=== PATIENT | male | born 1950 | race Caucasian/White ===

== ENCOUNTER 2017-06-23 17:22 | Inpatient (IN) | payer MEDICARE, OTHER ==
[~2017-06-23] VITALS: Ht 175.3 cm; Wt 83.5 kg
[2017-06-23] MEDS ORDERED: CYAN10005 PO (17:47)
[2017-06-23] MEDS ORDERED: ERGO500027 PO (17:52)
[2017-06-23] MEDS ORDERED: CITA10TA4 PO (17:52)
[2017-06-23] MEDS ORDERED: LEVO175T5 PO (17:52)
[2017-06-23] MEDS ORDERED: CLON0.5T3 PO (17:52)
[2017-06-23] MEDS ORDERED: ATOR20TA58 PO (17:52)
[2017-06-23] MEDS ORDERED: TAMS0.4C2 PO (17:52)
[2017-06-23] MEDS ORDERED: CARB200T PO (17:52)
[2017-06-23] MEDS ORDERED: DONE10TA7 PO (17:52)
[2017-06-23 18:07] LABS: BASO # 0.1 x10^3/uL (0.0-0.2); BASO % 1 % (0-3); EOS # 0.4 x10^3/uL (0.0-0.7); EOS % 4 % (0-3); HEMATOCRIT 39.1 % (39.0-53.0); HEMOGLOBIN 13.2 g/dL (13.0-17.5); LYMPH # 2.1 x10^3/uL (1.0-4.8); LYMPH % 22 % (24-48); MEAN CORPUSCULAR HEMOGLOBIN 30 pg (25-35); MEAN CORPUSCULAR HGB CONC 34 g/dL (31-37); MEAN CORPUSCULAR VOLUME 89 fL (79-100); MONO # 1.1 x10^3/uL (0.0-1.1); MONO % 11 % (0-9); NEUT # 5.7 x10^3uL (1.8-7.7); NEUT % 62 % (31-73); PLATELET COUNT 259 x10^3/uL (140-400); RED BLOOD COUNT 4.38 x10^6/uL (4.30-5.70); RED CELL DISTRIBUTION WIDTH 13.7 % (11.5-14.5); WHITE BLOOD COUNT 9.3 x10^3/uL (4.0-11.0)
--- NOTE | 2017-06-23 18:13 | PHYS DOC ---
Past History Past Medical History: Bipolar, Dementia Alcohol Use: Occasionally Drug Use: None Adult General Chief Complaint Chief Complaint: PSYCH EVALUATION HPI HPI Patient is a 66-year-old male with a reported history of dementia who arrives by EMS from his shelter for clearance for admission to the [facility]. The patient does not know why he is here. The patient is alert, cooperative, and does answer questions, but his history is felt to be unreliable. The patient says he has not eaten today. He denies any pain. He denies chest pain or shortness of air. He denies any complaints at this time. Review of Systems Review of Systems Review of systems is felt to be unreliable due to the patient's history of dementia and his not knowing why he is here. Allergies Allergies Allergies Coded Allergies Type Severity Reaction Last Updated Verified No Known Drug Allergies 06/23/17 No Physical Exam Physical Exam Constitutional: Well developed, well nourished, no acute distress, non-toxic appearance. Alert, vital signs stable, mentating normally. HENT: Normocephalic, atraumatic, bilateral external ears normal, nose normal. [] Eyes: conjunctiva normal, no discharge. [] Neck: Normal range of motion, no stridor. [] Cardiovascular:Heart rate regular rhythm, no murmur [] Lungs & Thorax: Bilateral breath sounds clear to auscultation [] Abdomen: Bowel sounds normal, soft, no tenderness, no masses, no pulsatile masses. [] Skin: Warm, dry, no erythema, no rash. [] Extremities: No tenderness, no cyanosis, no clubbing, ROM intact, no edema. [] Neurologic: Alert, normal motor function, no focal deficits noted. [] Current Patient Data Vital Signs Vital Signs Date Time Temp Pulse Resp B/P (MAP) Pulse Ox O2 Delivery O2 Flow Rate FiO2 06/23/17 17:39 97.6 67 18 93 Room Air Lab Results Laboratory Tests Test 06/23/17 17:35 White Blood Count 9.3 x10^3/uL (4.0-11.0) Red Blood Count 4.38 x10^6/uL (4.30-5.70) Hemoglobin 13.2 g/dL (13.0-17.5) Hematocrit 39.1 % (39.0-53.0) Mean Corpuscular Volume 89 fL (79-100) Mean Corpuscular Hemoglobin 30 pg (25-35) Mean Corpuscular Hemoglobin Concent 34 g/dL (31-37) Red Cell Distribution Width 13.7 % (11.5-14.5) Platelet Count 259 x10^3/uL (140-400) Neutrophils (%) (Auto) 62 % (31-73) Lymphocytes (%) (Auto) 22 % (24-48) L Monocytes (%) (Auto) 11 % (0-9) H Eosinophils (%) (Auto) 4 % (0-3) H Basophils (%) (Auto) 1 % (0-3) Neutrophils # (Auto) 5.7 x10^3uL (1.8-7.7) Lymphocytes # (Auto) 2.1 x10^3/uL (1.0-4.8) Monocytes # (Auto) 1.1 x10^3/uL (0.0-1.1) Eosinophils # (Auto) 0.4 x10^3/uL (0.0-0.7) Basophils # (Auto) 0.1 x10^3/uL (0.0-0.2) EKG EKG 12-lead EKG read by me. Sinus rhythm. Heart rate 66. Right bundle branch block. There are no acute ST or T wave changes indicative of ischemia or infarction. No rhythm disturbances. No STEMI. 1756[] Radiology/Procedures Radiology/Procedures [] Course & Med Decision Making Course & Med Decision Making Pertinent Labs and Imaging studies reviewed. (See chart for details) Screening labs, urinalysis, EKG were done for [facility] admission. I ordered a carbamazepine level since the patient has that on his NOV. The patient rested comfortably and was cooperative in the emergency department. STAT labs were reviewed by me and are unremarkable. EKG is normal. The patient is medically cleared for admission to the [facility] unit. [] Dragon Disclaimer Dragon Disclaimer This chart was dictated in whole or in part using Voice Recognition software in a busy, high-work load, and often noisy Emergency Department environment. It may contain unintended and wholly unrecognized errors or omissions. Departure Departure: Impression: Primary Impression: Behavioral problem Additional Impression: Dementia Disposition: ADMITTED INPATIENT Condition: STABLE Referrals: TRENTON LOPEZ MD (PCP) Problem Qualifiers SHERRI GROVES MD Jun 23, 2017 18:13
[2017-06-23 18:16] LABS: ALBUMIN 3.6 g/dL (3.4-5.0); ALBUMIN/GLOBULIN RATIO 0.8 (1.0-1.7); CALCIUM 8.6 mg/dL (8.5-10.1); CREATININE 0.8 mg/dL (0.7-1.3); GFR 96.4; MAGNESIUM 2.4 mg/dL (1.8-2.4); POTASSIUM 4.1 mmol/L (3.5-5.1); TOTAL BILIRUBIN 0.2 mg/dL (0.2-1.0); TOTAL PROTEIN 7.9 g/dL (6.4-8.2)
--- NOTE | 2017-06-23 18:31 | EKG ---
[address] [address] Test Date: 2017-06-23 Test Time: 17:56:27 Pat Name: [facility] Department: Room: Gender: M Compliance Attorney: JABARI : 1950 Requested By: SHERRI GROVES Order Number: [id number] Reading MD: Jason Sawyer Measurements Intervals [place] Rate: 66 P: 49 NM: 196 QRS: -11 QRSD: 102 T: 33 QT: 404 QTc: 425 Interpretive Statements SINUS RHYTHM RBBB Electronically Signed On 07-08-2017 9:10:28 CDT by Jason Sawyer
[2017-06-23 19:52] LABS: BACTERIA,URINE 0 /HPF (0-FEW); BILIRUBIN,URINE NEG (NEG); CLARITY,URINE CLEAR; COLOR,URINE YELLOW; GLUCOSE,URINE NEG (NEG); NITRITE,URINE NEG (NEG); RBC,URINE 0 /HPF (0-2); SQUAMOUS EPITHELIAL CELL,UR OCC /LPF; UROBILINOGEN,URINE 0.2 mg/dL (0.2 mg/dL); WBC,URINE 0 /HPF (0-4)
[2017-06-23 22:23] VITALS: BP 158/73
[2017-06-23] MEDS ORDERED: MAGN400O7 PO (22:29)
[2017-06-23] MEDS ORDERED: CYAN500T PO (22:29)
[2017-06-23] MEDS ORDERED: ONDA4TAB10 PO (22:29)
[2017-06-23] MEDS ORDERED: ACET325T9 PO (22:29)
[2017-06-23] MEDS ORDERED: CARB400T3 PO (22:29)
[2017-06-23] MEDS ORDERED: clonazePAM 0.5 MG TABLET PO PRN (22:30)
[2017-06-23] MEDS ORDERED: MAG HYDROX/AL HYDROX/SIMETH 30 ML ORAL.SUSP PO PRN (22:30)
[2017-06-23] MEDS ORDERED: MAGNESIUM HYDROXIDE 2,400 MG/30 ML ORAL.SUSP. PO PRN (22:30)
[2017-06-23] MEDS ORDERED: ACETAMINOPHEN 325 MG TABLET PO PRN (22:30)
[2017-06-23] MEDS ORDERED: METHYL SALICYLATE/MENTHOL TOPICAL OINTMENT 29GM TUBE. TP PRN (22:30)
[2017-06-23] MEDS ORDERED: ONDANSETRON ODT 4 MG TAB.RAPDIS PO PRN (22:45)
[2017-06-24] MEDS: LEVOTHYROXINE 175 MCG TABLET PO SCH (05:35)
[2017-06-24] MEDS ORDERED: ACETAMINOPHEN 325 MG TABLET PO PRN (06:45)
[2017-06-24] MEDS ORDERED: MAGNESIUM HYDROXIDE 2,400 MG/30 ML ORAL.SUSP. PO PRN (06:45)
[2017-06-24 07:26] VITALS: BP 142/79
[2017-06-24] MEDS: CITALOPRAM 10 MG TABLET. PO SCH (07:34)
[2017-06-24] MEDS: carBAMazepine XR 200 MG TAB.ER.12H PO SCH ×2 (07:35→19:18)
[2017-06-24] MEDS: CYANOCOBALAMIN (VITAMIN B-12) 1,000 MCG TABLET. PO SCH (07:35)
[2017-06-24 11:57] LABS: THYROID STIM HORMONE (TSH) 4.587 uIU/mL (0.358-3.740)
[2017-06-24 12:00] LABS: CARBAM 8.8 mcg/mL (4.0-12.0)
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
[2017-06-24 16:20] VITALS: BP 144/80
[2017-06-24] MEDS: MIRTAZAPINE 7.5 MG TABLET. PO SCH (19:43)
[2017-06-24] MEDS: ATORVASTATIN CALCIUM 20 MG TABLET PO SCH (19:43)
[2017-06-24] MEDS: TAMSULOSIN 0.4 MG CAP.ER.24H. PO SCH (19:43)
[2017-06-24] MEDS: DONEPEZIL HCL 10 MG TABLET PO SCH (19:44)
[2017-06-24 20:08] LABS: HEMOGLOBIN A1C 5.8 % (4.8-5.6)
--- NOTE | 2017-06-24 21:34 | PDOC ---
Exam Gunnar Demential Exam: Gunnar Note: Please also refer to the separate dictated note~for this date of service dictated separately.~Patient seen individually. Discussed the patient with Nursing staff reviewed the chart.~Reviewed interim history and current functioning. Reviewed vital signs,~Labs/ Radiology~and current medications noted below. Continue current treatment with the changes noted in the dictated addendum note Assessment: Vital Signs: Vital Signs Date Time Temp Pulse Resp B/P (MAP) Pulse Ox O2 Delivery O2 Flow Rate FiO2 06/24/17 16:20 98.6 77 16 144/80 (101) 92 Room Air I&O Intake and Output 06/25/17 07:00 Intake Total 1320 ml Balance 1320 ml Intake Oral 1320 ml Current Medications: Meds: Current Medications Acetaminophen (Tylenol) 650 mg PRN Q6HRS PRN PO PAIN / TEMP; Start 06/23/17 at 22:30 Multi-Ingredient Ointment (Analgesic [place]) 1 brittney PRN QID PRN TP MUSCLE PAIN; Start 06/23/17 at 22:30 Al Hydroxide/Mg Hydroxide (Mylanta Plus Xs) 15 ml PRN AFTMEALHC PRN PO DYSPEPSIA; Start 06/23/17 at 22:30 Magnesium Hydroxide (Milk Of Magnesia) 2,400 mg PRN QHS PRN PO CONSTIPATION; Start 06/23/17 at 22:30 Citalopram Hydrobromide (CeleXA) 10 mg DAILY PO Last administered on 07:34; Start 06/24/17 at 09:00 Clonazepam (KlonoPIN) 0.5 mg PRN BID PRN PO ANXIETY / AGITATION; Start at 22:30 Donepezil HCl (Aricept) 10 mg QHS PO Last administered on 06/24/17 19:44; Start 06/24/17 at 21:00 Atorvastatin Calcium (Lipitor) 20 mg QHS PO Last administered on 06/24/17 19: 43; Start 06/24/17 at 21:00 Levothyroxine Sodium (Synthroid) 175 mcg DAILY07 PO Last administered on 05:35; Start 06/24/17 at 07:00 Ondansetron HCl (Zofran Odt) 4 mg PRN Q8HRS PRN PO NAUSEA/VOMITING; Start at 22:45 Tamsulosin HCl (Flomax) 0.4 mg QHS PO Last administered on 06/24/17 19:43; Start 06/24/17 at 21:00 Carbamazepine (TEGretol XR) 400 mg BID PO Last administered on 06/24/17 19:18 ; Start 06/24/17 at 09:00 Cyanocobalamin (Vitamin B-12) 1,000 mcg DAILY PO Last administered on 07:35; Start 06/24/17 at 09:00 Vitamin D (Vitamin D3) 50,000 unit WEEKLY PO ; Start 07/02/17 at 09:00 Acetaminophen (Tylenol) 650 mg PRN Q6HRS PRN PO PAIN / TEMP; Start 06/24/17 at 06:45; Status UNV Magnesium Hydroxide (Milk Of Magnesia) 2,400 mg PRN DAILY PRN PO CONSTIPATION; Start 06/24/17 at 06:45; Status UNV Mirtazapine (Remeron) 7.5 mg QHS PO Last administered on 06/24/17 19:43; Start 06/24/17 at 21:00 Active Scripts Active Reported Zofran Odt (Ondansetron) 4 Mg Tab.rapdis 4 Mg PO PRN Q8HRS PRN Milk Of Magnesia (Magnesium Hydroxide) 400 Mg/5 Ml Oral.susp 2,400 Mg PO PRN DAILY PRN Carbamazepine Er (Carbamazepine) 400 Mg Tab.er.12h 400 Mg PO BID Tylenol (Acetaminophen) 325 Mg Tablet 650 Mg PO PRN Q6HRS PRN Vitamin B-12 (Cyanocobalamin (Vitamin B-12)) 500 Mcg Tablet 1,000 Mcg PO DAILY Citalopram Hbr (Citalopram Hydrobromide) 10 Mg Tablet 10 Mg PO DAILY Levothyroxine Sodium 175 Mcg Tablet 175 Mcg PO DAILY07 Donepezil Hcl 10 Mg Tablet 10 Mg PO QHS Atorvastatin Calcium 20 Mg Tablet 20 Mg PO QHS Tamsulosin Hcl 0.4 Mg Cap.er.24h 0.4 Mg PO QHS Clonazepam 0.5 Mg Tablet 0.5 Mg PO PRN BID PRN Vitamin D2 (Ergocalciferol (Vitamin D2)) 50,000 Unit Capsule 50,000 Units PO QTU Diagnosis: Problems: (1) Dementia (2) Behavioral problem (3) Anxiety disorder (4) Bipolar affective, mixed, severe (5) Dementia, vascular, with depression (6) 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
[2017-06-24 23:08] LABS: T3 TOTAL 91 ng/dL (71-180); THYROXINE 6.1 ug/dL (4.5-12.0)
[2017-06-25 06:22] VITALS: BP 144/78
[2017-06-25] MEDS: LEVOTHYROXINE 175 MCG TABLET PO SCH (08:07)
[2017-06-25] MEDS: CYANOCOBALAMIN (VITAMIN B-12) 1,000 MCG TABLET. PO SCH (08:07)
[2017-06-25] MEDS: carBAMazepine XR 200 MG TAB.ER.12H PO SCH ×2 (08:07→20:23)
[2017-06-25] MEDS: CITALOPRAM 10 MG TABLET. PO SCH (08:07)
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
[2017-06-25 16:10] VITALS: BP 129/80
[2017-06-25] MEDS: ATORVASTATIN CALCIUM 20 MG TABLET PO SCH (20:23)
[2017-06-25] MEDS: TAMSULOSIN 0.4 MG CAP.ER.24H. PO SCH (20:23)
[2017-06-25] MEDS: DONEPEZIL HCL 10 MG TABLET PO SCH (20:23)
[2017-06-25] MEDS: MIRTAZAPINE 7.5 MG TABLET. PO SCH (20:23)
--- NOTE | 2017-06-25 20:30 | PDOC ---
Exam Gunnar Demential Exam: Gunnar Note: Please also refer to the separate dictated note~for this date of service dictated separately.~Patient seen individually. Discussed the patient with Nursing staff reviewed the chart.~Reviewed interim history and current functioning. Reviewed vital signs,~Labs/ Radiology~and current medications noted below. Continue current treatment with the changes noted in the dictated addendum note Assessment: Vital Signs: Vital Signs Date Time Temp Pulse Resp B/P (MAP) Pulse Ox O2 Delivery O2 Flow Rate FiO2 06/25/17 16:10 98.8 80 16 129/80 (96) 92 06/24/17 16:20 Room Air I&O Intake and Output 06/26/17 07:00 Intake Total 600 ml Balance 600 ml Intake Oral 600 ml # Bowel Movements 1 Current Medications: Meds: Current Medications Acetaminophen (Tylenol) 650 mg PRN Q6HRS PRN PO PAIN / TEMP; Start 06/23/17 at 22:30 Multi-Ingredient Ointment (Analgesic [place]) 1 brittney PRN QID PRN TP MUSCLE PAIN; Start 06/23/17 at 22:30 Al Hydroxide/Mg Hydroxide (Mylanta Plus Xs) 15 ml PRN AFTMEALHC PRN PO DYSPEPSIA; Start 06/23/17 at 22:30 Magnesium Hydroxide (Milk Of Magnesia) 2,400 mg PRN QHS PRN PO CONSTIPATION; Start 06/23/17 at 22:30 Citalopram Hydrobromide (CeleXA) 10 mg DAILY PO Last administered on 08:07; Start 06/24/17 at 09:00 Clonazepam (KlonoPIN) 0.5 mg PRN BID PRN PO ANXIETY / AGITATION; Start at 22:30 Donepezil HCl (Aricept) 10 mg QHS PO Last administered on 06/25/17 20:23; Start 06/24/17 at 21:00 Atorvastatin Calcium (Lipitor) 20 mg QHS PO Last administered on 06/25/17 20: 23; Start 06/24/17 at 21:00 Levothyroxine Sodium (Synthroid) 175 mcg DAILY07 PO Last administered on 08:07; Start 06/24/17 at 07:00; Stop 06/25/17 at 13:17; Status DC Ondansetron HCl (Zofran Odt) 4 mg PRN Q8HRS PRN PO NAUSEA/VOMITING; Start at 22:45 Tamsulosin HCl (Flomax) 0.4 mg QHS PO Last administered on 06/25/17 20:23; Start 06/24/17 at 21:00 Carbamazepine (TEGretol XR) 400 mg BID PO Last administered on 06/25/17 20:23 ; Start 06/24/17 at 09:00 Cyanocobalamin (Vitamin B-12) 1,000 mcg DAILY PO Last administered on 08:07; Start 06/24/17 at 09:00 Vitamin D (Vitamin D3) 50,000 unit WEEKLY PO ; Start 07/02/17 at 09:00 Acetaminophen (Tylenol) 650 mg PRN Q6HRS PRN PO PAIN / TEMP; Start 06/24/17 at 06:45; Status UNV Magnesium Hydroxide (Milk Of Magnesia) 2,400 mg PRN DAILY PRN PO CONSTIPATION; Start 06/24/17 at 06:45; Status UNV Mirtazapine (Remeron) 7.5 mg QHS PO Last administered on 06/25/17 20:23; Start 06/24/17 at 21:00 Levothyroxine Sodium (Synthroid) 175 mcg DAILY06 PO ; Start 06/26/17 at 06:00 Propranolol HCl (Inderal) 10 mg BID92 PO ; Start 06/26/17 at 09:00 Active Scripts Active Reported Zofran Odt (Ondansetron) 4 Mg Tab.rapdis 4 Mg PO PRN Q8HRS PRN Milk Of Magnesia (Magnesium Hydroxide) 400 Mg/5 Ml Oral.susp 2,400 Mg PO PRN DAILY PRN Carbamazepine Er (Carbamazepine) 400 Mg Tab.er.12h 400 Mg PO BID Tylenol (Acetaminophen) 325 Mg Tablet 650 Mg PO PRN Q6HRS PRN Vitamin B-12 (Cyanocobalamin (Vitamin B-12)) 500 Mcg Tablet 1,000 Mcg PO DAILY Citalopram Hbr (Citalopram Hydrobromide) 10 Mg Tablet 10 Mg PO DAILY Levothyroxine Sodium 175 Mcg Tablet 175 Mcg PO DAILY07 Donepezil Hcl 10 Mg Tablet 10 Mg PO QHS Atorvastatin Calcium 20 Mg Tablet 20 Mg PO QHS Tamsulosin Hcl 0.4 Mg Cap.er.24h 0.4 Mg PO QHS Clonazepam 0.5 Mg Tablet 0.5 Mg PO PRN BID PRN Vitamin D2 (Ergocalciferol (Vitamin D2)) 50,000 Unit Capsule 50,000 Units PO QTU Diagnosis: Problems: (1) Dementia (2) Behavioral problem (3) Anxiety disorder (4) Bipolar affective, mixed, severe (5) Dementia, vascular, with depression (6) 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
[2017-06-26] MEDS: LEVOTHYROXINE 175 MCG TABLET PO SCH (06:03)
[2017-06-26 06:04] VITALS: BP 139/75
[2017-06-26] MEDS: CYANOCOBALAMIN (VITAMIN B-12) 1,000 MCG TABLET. PO SCH (09:20)
[2017-06-26] MEDS: CITALOPRAM 10 MG TABLET. PO SCH (09:20)
[2017-06-26] MEDS: carBAMazepine XR 200 MG TAB.ER.12H PO SCH ×2 (09:20→19:45)
[2017-06-26] MEDS: PROPRANOLOL 10 MG TABLET. PO SCH ×2 (09:22→16:29)
[2017-06-26 16:22] VITALS: BP 185/67
[2017-06-26] MEDS: DONEPEZIL HCL 10 MG TABLET PO SCH (19:45)
[2017-06-26] MEDS: TAMSULOSIN 0.4 MG CAP.ER.24H. PO SCH (19:45)
[2017-06-26] MEDS: MIRTAZAPINE 7.5 MG TABLET. PO SCH (19:45)
[2017-06-26] MEDS: ATORVASTATIN CALCIUM 20 MG TABLET PO SCH (19:46)
[2017-06-26 20:58] VITALS: BP 127/77
--- NOTE | 2017-06-26 21:00 | PDOC ---
Exam Gunnar Demential Exam: Gunnar Note: Please also refer to the separate dictated note~for this date of service dictated separately.~Patient seen individually. Discussed the patient with Nursing staff reviewed the chart.~Reviewed interim history and current functioning. Reviewed vital signs,~Labs/ Radiology~and current medications noted below. Continue current treatment with the changes noted in the dictated addendum note Assessment: Vital Signs: Vital Signs Date Time Temp Pulse Resp B/P (MAP) Pulse Ox O2 Delivery O2 Flow Rate FiO2 06/26/17 20:58 73 18 127/77 (94) Room Air 06/26/17 16:22 98.6 92 I&O Intake and Output 06/27/17 06:59 Intake Total 600 ml Balance 600 ml Intake Oral 600 ml Current Medications: Meds: Current Medications Acetaminophen (Tylenol) 650 mg PRN Q6HRS PRN PO PAIN / TEMP Last administered on 06/25/17 20:31; Start 06/23/17 at 22:30 Multi-Ingredient Ointment (Analgesic [place]) 1 brittney PRN QID PRN TP MUSCLE PAIN; Start 06/23/17 at 22:30 Al Hydroxide/Mg Hydroxide (Mylanta Plus Xs) 15 ml PRN AFTMEALHC PRN PO DYSPEPSIA; Start 06/23/17 at 22:30 Magnesium Hydroxide (Milk Of Magnesia) 2,400 mg PRN QHS PRN PO CONSTIPATION; Start 06/23/17 at 22:30 Citalopram Hydrobromide (CeleXA) 10 mg DAILY PO Last administered on 09:20; Start 06/24/17 at 09:00 Clonazepam (KlonoPIN) 0.5 mg PRN BID PRN PO ANXIETY / AGITATION; Start at 22:30 Donepezil HCl (Aricept) 10 mg QHS PO Last administered on 06/26/17 19:45; Start 06/24/17 at 21:00 Atorvastatin Calcium (Lipitor) 20 mg QHS PO Last administered on 06/26/17 19: 46; Start 06/24/17 at 21:00 Levothyroxine Sodium (Synthroid) 175 mcg DAILY07 PO Last administered on 08:07; Start 06/24/17 at 07:00; Stop 06/25/17 at 13:17; Status DC Ondansetron HCl (Zofran Odt) 4 mg PRN Q8HRS PRN PO NAUSEA/VOMITING; Start at 22:45 Tamsulosin HCl (Flomax) 0.4 mg QHS PO Last administered on 06/26/17 19:45; Start 06/24/17 at 21:00 Carbamazepine (TEGretol XR) 400 mg BID PO Last administered on 06/26/17 19:45 ; Start 06/24/17 at 09:00 Cyanocobalamin (Vitamin B-12) 1,000 mcg DAILY PO Last administered on 09:20; Start 06/24/17 at 09:00 Vitamin D (Vitamin D3) 50,000 unit WEEKLY PO ; Start 07/02/17 at 09:00 Acetaminophen (Tylenol) 650 mg PRN Q6HRS PRN PO PAIN / TEMP; Start 06/24/17 at 06:45; Status UNV Magnesium Hydroxide (Milk Of Magnesia) 2,400 mg PRN DAILY PRN PO CONSTIPATION; Start 06/24/17 at 06:45; Status UNV Mirtazapine (Remeron) 7.5 mg QHS PO Last administered on 06/26/17 19:45; Start 06/24/17 at 21:00 Levothyroxine Sodium (Synthroid) 175 mcg DAILY06 PO Last administered on 06:03; Start 06/26/17 at 06:00 Propranolol HCl (Inderal) 10 mg BID92 PO Last administered on 06/26/17 16:29 ; Start 06/26/17 at 09:00; Stop 06/26/17 at 18:22; Status DC Propranolol HCl (Inderal) 10 mg TID@0900,1300,1700 PO ; Start 06/27/17 at 09:00 Active Scripts Active Reported Zofran Odt (Ondansetron) 4 Mg Tab.rapdis 4 Mg PO PRN Q8HRS PRN Milk Of Magnesia (Magnesium Hydroxide) 400 Mg/5 Ml Oral.susp 2,400 Mg PO PRN DAILY PRN Carbamazepine Er (Carbamazepine) 400 Mg Tab.er.12h 400 Mg PO BID Tylenol (Acetaminophen) 325 Mg Tablet 650 Mg PO PRN Q6HRS PRN Vitamin B-12 (Cyanocobalamin (Vitamin B-12)) 500 Mcg Tablet 1,000 Mcg PO DAILY Citalopram Hbr (Citalopram Hydrobromide) 10 Mg Tablet 10 Mg PO DAILY Levothyroxine Sodium 175 Mcg Tablet 175 Mcg PO DAILY07 Donepezil Hcl 10 Mg Tablet 10 Mg PO QHS Atorvastatin Calcium 20 Mg Tablet 20 Mg PO QHS Tamsulosin Hcl 0.4 Mg Cap.er.24h 0.4 Mg PO QHS Clonazepam 0.5 Mg Tablet 0.5 Mg PO PRN BID PRN Vitamin D2 (Ergocalciferol (Vitamin D2)) 50,000 Unit Capsule 50,000 Units PO QTU Diagnosis: Problems: (1) Dementia (2) Behavioral problem (3) Anxiety disorder (4) Bipolar affective, mixed, severe (5) Dementia, vascular, with depression (6) 

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
[2017-06-27] MEDS: LEVOTHYROXINE 175 MCG TABLET PO SCH (06:10)
[2017-06-27 06:40] VITALS: BP 147/78
[2017-06-27] MEDS: CITALOPRAM 10 MG TABLET. PO SCH (08:39)
[2017-06-27] MEDS: carBAMazepine XR 200 MG TAB.ER.12H PO SCH ×2 (08:39→19:46)
[2017-06-27] MEDS: CYANOCOBALAMIN (VITAMIN B-12) 1,000 MCG TABLET. PO SCH (08:39)
[2017-06-27] MEDS: PROPRANOLOL 10 MG TABLET. PO SCH ×3 (08:41→16:39)
[2017-06-27 16:25] VITALS: BP 126/74
[2017-06-27] MEDS: DONEPEZIL HCL 10 MG TABLET PO SCH (19:45)
[2017-06-27] MEDS: ATORVASTATIN CALCIUM 20 MG TABLET PO SCH (19:45)
[2017-06-27] MEDS: traZODone 50 MG TABLET. PO SCH (19:46)
[2017-06-27] MEDS: TAMSULOSIN 0.4 MG CAP.ER.24H. PO SCH (19:46)
[2017-06-27] MEDS: MIRTAZAPINE 7.5 MG TABLET. PO SCH (19:46)
--- NOTE | 2017-06-27 21:03 | PDOC ---
Exam Gunnar Demential Exam: Gunnar Note: Please also refer to the separate dictated note~for this date of service dictated separately.~Patient seen individually. Discussed the patient with Nursing staff reviewed the chart.~Reviewed interim history and current functioning. Reviewed vital signs,~Labs/ Radiology~and current medications noted below. Continue current treatment with the changes noted in the dictated addendum note Assessment: Vital Signs: Vital Signs Date Time Temp Pulse Resp B/P (MAP) Pulse Ox O2 Delivery O2 Flow Rate FiO2 06/27/17 16:39 84 126/74 06/27/17 16:25 98.5 20 97 06/26/17 20:58 Room Air I&O Intake and Output 06/28/17 07:00 Intake Total 840 ml Balance 840 ml Intake Oral 840 ml Current Medications: Meds: Current Medications Acetaminophen (Tylenol) 650 mg PRN Q6HRS PRN PO PAIN / TEMP Last administered on 06/25/17 20:31; Start 06/23/17 at 22:30 Multi-Ingredient Ointment (Analgesic [place]) 1 brittney PRN QID PRN TP MUSCLE PAIN; Start 06/23/17 at 22:30 Al Hydroxide/Mg Hydroxide (Mylanta Plus Xs) 15 ml PRN AFTMEALHC PRN PO DYSPEPSIA; Start 06/23/17 at 22:30 Magnesium Hydroxide (Milk Of Magnesia) 2,400 mg PRN QHS PRN PO CONSTIPATION; Start 06/23/17 at 22:30 Citalopram Hydrobromide (CeleXA) 10 mg DAILY PO Last administered on 08:39; Start 06/24/17 at 09:00 Clonazepam (KlonoPIN) 0.5 mg PRN BID PRN PO ANXIETY / AGITATION; Start at 22:30 Donepezil HCl (Aricept) 10 mg QHS PO Last administered on 06/27/17 19:45; Start 06/24/17 at 21:00 Atorvastatin Calcium (Lipitor) 20 mg QHS PO Last administered on 06/27/17 19: 45; Start 06/24/17 at 21:00 Levothyroxine Sodium (Synthroid) 175 mcg DAILY07 PO Last administered on 08:07; Start 06/24/17 at 07:00; Stop 06/25/17 at 13:17; Status DC Ondansetron HCl (Zofran Odt) 4 mg PRN Q8HRS PRN PO NAUSEA/VOMITING; Start at 22:45 Tamsulosin HCl (Flomax) 0.4 mg QHS PO Last administered on 06/27/17 19:46; Start 06/24/17 at 21:00 Carbamazepine (TEGretol XR) 400 mg BID PO Last administered on 06/27/17 19:46 ; Start 06/24/17 at 09:00 Cyanocobalamin (Vitamin B-12) 1,000 mcg DAILY PO Last administered on 08:39; Start 06/24/17 at 09:00 Vitamin D (Vitamin D3) 50,000 unit WEEKLY PO ; Start 07/02/17 at 09:00 Acetaminophen (Tylenol) 650 mg PRN Q6HRS PRN PO PAIN / TEMP; Start 06/24/17 at 06:45; Status UNV Magnesium Hydroxide (Milk Of Magnesia) 2,400 mg PRN DAILY PRN PO CONSTIPATION; Start 06/24/17 at 06:45; Status UNV Mirtazapine (Remeron) 7.5 mg QHS PO Last administered on 06/27/17 19:46; Start 06/24/17 at 21:00 Levothyroxine Sodium (Synthroid) 175 mcg DAILY06 PO Last administered on 06:10; Start 06/26/17 at 06:00 Propranolol HCl (Inderal) 10 mg BID92 PO Last administered on 06/26/17 16:29 ; Start 06/26/17 at 09:00; Stop 06/26/17 at 18:22; Status DC Propranolol HCl (Inderal) 10 mg TID@0900,1300,1700 PO Last administered on 16:34; Start 06/27/17 at 09:00 Trazodone HCl (Desyrel) 50 mg QHS PO Last administered on 06/27/17 19:46; Start 06/27/17 at 21:00 Active Scripts Active Reported Zofran Odt (Ondansetron) 4 Mg Tab.rapdis 4 Mg PO PRN Q8HRS PRN Milk Of Magnesia (Magnesium Hydroxide) 400 Mg/5 Ml Oral.susp 2,400 Mg PO PRN DAILY PRN Carbamazepine Er (Carbamazepine) 400 Mg Tab.er.12h 400 Mg PO BID Tylenol (Acetaminophen) 325 Mg Tablet 650 Mg PO PRN Q6HRS PRN Vitamin B-12 (Cyanocobalamin (Vitamin B-12)) 500 Mcg Tablet 1,000 Mcg PO DAILY Citalopram Hbr (Citalopram Hydrobromide) 10 Mg Tablet 10 Mg PO DAILY Levothyroxine Sodium 175 Mcg Tablet 175 Mcg PO DAILY07 Donepezil Hcl 10 Mg Tablet 10 Mg PO QHS Atorvastatin Calcium 20 Mg Tablet 20 Mg PO QHS Tamsulosin Hcl 0.4 Mg Cap.er.24h 0.4 Mg PO QHS Clonazepam 0.5 Mg Tablet 0.5 Mg PO PRN BID PRN Vitamin D2 (Ergocalciferol (Vitamin D2)) 50,000 Unit Capsule 50,000 Units PO QTU Diagnosis: Problems: (1) Dementia (2) Behavioral problem (3) Anxiety disorder (4) Bipolar affective, mixed, severe (5) Dementia, vascular, with depression (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
--- NOTE | 2017-06-28 05:43 | PN ---
DATE: 06/26/2017 PSYCHIATRIC PROGRESS NOTE This late entry 06/26/2017 covers elements not covered in my initial note of 06/26/2017. SUBJECTIVE: I met with the patient in the evening of 06/26/2017. The patient has had marked mood lability during the day. In the morning of 06/26/2017 he was quite agitated, yelling, threatening others around him, knocked medication out of the nursing staff's hand, resistive to care, using foul language, sexually inappropriate making lewd comments. REVIEW OF SYSTEMS: No CV, , pulmonary, eye, ENT system symptoms on review. Reliability poor. MENTAL STATUS EXAM: Oriented to himself. Insight, judgment, recent and remote memory, attention, concentration, fund of knowledge poor, consistent with his diagnosis mentioned in my initial note. PLAN: Increase Inderal from 10 mg b.i.d. to 10 mg 3 times a day starting 06/27/2017. Maintain the rest of his psychotropics mentioned in my initial note. Review drug interactions, risk/benefit ratio favors no further change. MAN Maximo LOMBARDO MD DR: OMAR/kyle JOB#: [id number] / [id number]
[2017-06-28 06:01] VITALS: BP 141/80
[2017-06-28] MEDS: LEVOTHYROXINE 175 MCG TABLET PO SCH (06:04)
[2017-06-28] MEDS: CYANOCOBALAMIN (VITAMIN B-12) 1,000 MCG TABLET. PO SCH (10:12)
[2017-06-28] MEDS: carBAMazepine XR 200 MG TAB.ER.12H PO SCH ×2 (10:12→20:09)
[2017-06-28] MEDS: CITALOPRAM 10 MG TABLET. PO SCH (10:12)
[2017-06-28] MEDS: PROPRANOLOL 10 MG TABLET. PO SCH ×3 (10:12→17:25)
[2017-06-28 16:38] VITALS: BP 115/72
[2017-06-28] MEDS ORDERED: PROPRANOLOL 20 MG TABLET. PO SCH (17:00)
[2017-06-28] MEDS: traZODone 50 MG TABLET. PO SCH (20:08)
[2017-06-28] MEDS: DONEPEZIL HCL 10 MG TABLET PO SCH (20:08)
[2017-06-28] MEDS: MIRTAZAPINE 7.5 MG TABLET. PO SCH (20:08)
[2017-06-28] MEDS: ATORVASTATIN CALCIUM 20 MG TABLET PO SCH (20:08)
[2017-06-28] MEDS: TAMSULOSIN 0.4 MG CAP.ER.24H. PO SCH (20:09)
--- NOTE | 2017-06-28 20:59 | PDOC ---
Exam Gunnar Demential Exam: Gunnar Note: Please also refer to the separate dictated note~for this date of service dictated separately.~Patient seen individually. Discussed the patient with Nursing staff reviewed the chart.~Reviewed interim history and current functioning. Reviewed vital signs,~Labs/ Radiology~and current medications noted below. Continue current treatment with the changes noted in the dictated addendum note Assessment: Vital Signs: Vital Signs Date Time Temp Pulse Resp B/P (MAP) Pulse Ox O2 Delivery O2 Flow Rate FiO2 06/28/17 17:25 60 115/72 06/28/17 16:38 97.8 18 93 06/26/17 20:58 Room Air I&O Intake and Output 06/29/17 07:00 Intake Total 360 ml Balance 360 ml Intake Oral 360 ml Current Medications: Meds: Current Medications Acetaminophen (Tylenol) 650 mg PRN Q6HRS PRN PO PAIN / TEMP Last administered on 06/25/17 20:31; Start 06/23/17 at 22:30 Multi-Ingredient Ointment (Analgesic [place]) 1 brittney PRN QID PRN TP MUSCLE PAIN; Start 06/23/17 at 22:30 Al Hydroxide/Mg Hydroxide (Mylanta Plus Xs) 15 ml PRN AFTMEALHC PRN PO DYSPEPSIA; Start 06/23/17 at 22:30 Magnesium Hydroxide (Milk Of Magnesia) 2,400 mg PRN QHS PRN PO CONSTIPATION; Start 06/23/17 at 22:30 Citalopram Hydrobromide (CeleXA) 10 mg DAILY PO Last administered on 10:12; Start 06/24/17 at 09:00 Clonazepam (KlonoPIN) 0.5 mg PRN BID PRN PO ANXIETY / AGITATION; Start at 22:30 Donepezil HCl (Aricept) 10 mg QHS PO Last administered on 06/28/17 20:08; Start 06/24/17 at 21:00 Atorvastatin Calcium (Lipitor) 20 mg QHS PO Last administered on 06/28/17 20: 08; Start 06/24/17 at 21:00 Levothyroxine Sodium (Synthroid) 175 mcg DAILY07 PO Last administered on 08:07; Start 06/24/17 at 07:00; Stop 06/25/17 at 13:17; Status DC Ondansetron HCl (Zofran Odt) 4 mg PRN Q8HRS PRN PO NAUSEA/VOMITING; Start at 22:45 Tamsulosin HCl (Flomax) 0.4 mg QHS PO Last administered on 06/28/17 20:09; Start 06/24/17 at 21:00 Carbamazepine (TEGretol XR) 400 mg BID PO Last administered on 06/28/17 20:09 ; Start 06/24/17 at 09:00 Cyanocobalamin (Vitamin B-12) 1,000 mcg DAILY PO Last administered on 10:12; Start 06/24/17 at 09:00 Vitamin D (Vitamin D3) 50,000 unit WEEKLY PO ; Start 07/02/17 at 09:00 Acetaminophen (Tylenol) 650 mg PRN Q6HRS PRN PO PAIN / TEMP; Start 06/24/17 at 06:45; Status UNV Magnesium Hydroxide (Milk Of Magnesia) 2,400 mg PRN DAILY PRN PO CONSTIPATION; Start 06/24/17 at 06:45; Status UNV Mirtazapine (Remeron) 7.5 mg QHS PO Last administered on 06/28/17 20:08; Start 06/24/17 at 21:00 Levothyroxine Sodium (Synthroid) 175 mcg DAILY06 PO Last administered on 06:04; Start 06/26/17 at 06:00 Propranolol HCl (Inderal) 10 mg BID92 PO Last administered on 06/26/17 16:29 ; Start 06/26/17 at 09:00; Stop 06/26/17 at 18:22; Status DC Propranolol HCl (Inderal) 10 mg TID@0900,1300,1700 PO Last administered on 13:46; Start 06/27/17 at 09:00; Stop 06/28/17 at 15:49; Status DC Trazodone HCl (Desyrel) 50 mg QHS PO Last administered on 06/28/17 20:08; Start 06/27/17 at 21:00 Propranolol HCl (Inderal) 20 mg TID@1000,1300,1700 PO ; Start 06/28/17 at 17:00 ; Status Cancel Propranolol HCl (Inderal) 20 mg TID@0900,1300,1700 PO Last administered on t 17:25; Start 06/28/17 at 17:00 Active Scripts Active Reported Zofran Odt (Ondansetron) 4 Mg Tab.rapdis 4 Mg PO PRN Q8HRS PRN Milk Of Magnesia (Magnesium Hydroxide) 400 Mg/5 Ml Oral.susp 2,400 Mg PO PRN DAILY PRN Carbamazepine Er (Carbamazepine) 400 Mg Tab.er.12h 400 Mg PO BID Tylenol (Acetaminophen) 325 Mg Tablet 650 Mg PO PRN Q6HRS PRN Vitamin B-12 (Cyanocobalamin (Vitamin B-12)) 500 Mcg Tablet 1,000 Mcg PO DAILY Citalopram Hbr (Citalopram Hydrobromide) 10 Mg Tablet 10 Mg PO DAILY Levothyroxine Sodium 175 Mcg Tablet 175 Mcg PO DAILY07 Donepezil Hcl 10 Mg Tablet 10 Mg PO QHS Atorvastatin Calcium 20 Mg Tablet 20 Mg PO QHS Tamsulosin Hcl 0.4 Mg Cap.er.24h 0.4 Mg PO QHS Clonazepam 0.5 Mg Tablet 0.5 Mg PO PRN BID PRN Vitamin D2 (Ergocalciferol (Vitamin D2)) 50,000 Unit Capsule 50,000 Units PO QTU Diagnosis: Problems: (1) Dementia (2) Behavioral problem (3) Anxiety disorder (4) Bipolar affective, mixed, severe (5) Dementia, vascular, with depression (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
--- NOTE | 2017-06-29 04:14 | PN ---
DATE: 06/27/2017 PSYCHIATRIC PROGRESS NOTE This late entry 06/27/2017 covers elements not covered in my initial note of 06/27/2017. SUBJECTIVE: The patient was staffed at a treatment team meeting with the entire team morning of 06/27/2017, seen individually evening of 06/27/2017. He remains somewhat labile in his mood, cursing, yelling at times, agitated. Much of the agitation is with cares. Slept 4-3/4 hours the previous evening. We will add trazodone 50 mg at bedtime, scheduled may repeat x 1 p.r.n. for insomnia. REVIEW OF SYSTEMS: No CV, , pulmonary, eye, ENT system symptoms on review. Reliability poor. MENTAL STATUS EXAM: Oriented to himself. Insight, judgment, recent and remote memory, attention, concentration, fund of knowledge poor, consistent with his diagnosis mentioned in my initial note. LABORATORIES: Reviewed. IMPRESSION: Unchanged from initial note. PLAN: Continue current psychotropics. Add trazodone. Tegretol level is therapeutic. We have initiated Inderal starting 06/28/2017. We will increase Inderal to 20 mg 3 times a day to help with his impulse control, status post head injury. Review drug interactions, risk/benefit ratio favors no further change. CHERIE LOMBARDO MD DR: OMAR/kyle JOB#: [id number] / [id number]
[2017-06-29] MEDS: LEVOTHYROXINE 175 MCG TABLET PO SCH (04:37)
[2017-06-29 06:02] VITALS: BP 120/65
[2017-06-29] MEDS: CYANOCOBALAMIN (VITAMIN B-12) 1,000 MCG TABLET. PO SCH (08:35)
[2017-06-29] MEDS: CITALOPRAM 10 MG TABLET. PO SCH (08:35)
[2017-06-29] MEDS: carBAMazepine XR 200 MG TAB.ER.12H PO SCH ×2 (08:35→20:18)
[2017-06-29] MEDS: PROPRANOLOL 10 MG TABLET. PO SCH ×3 (09:00→16:41)
[2017-06-29 09:21] LABS: ALBUMIN 3.7 g/dL (3.4-5.0); ALBUMIN/GLOBULIN RATIO 0.8 (1.0-1.7); CALCIUM 8.7 mg/dL (8.5-10.1); CREATININE 0.8 mg/dL (0.7-1.3); GFR 96.1; POTASSIUM 3.8 mmol/L (3.5-5.1); TOTAL BILIRUBIN 0.3 mg/dL (0.2-1.0); TOTAL PROTEIN 8.2 g/dL (6.4-8.2)
[2017-06-29 09:22] LABS: BASO # 0.1 x10^3/uL (0.0-0.2); BASO % 1 % (0-3); EOS # 0.4 x10^3/uL (0.0-0.7); EOS % 5 % (0-3); HEMOGLOBIN 14.3 g/dL (13.0-17.5); LYMPH # 1.7 x10^3/uL (1.0-4.8); LYMPH % 21 % (24-48); MEAN CORPUSCULAR HEMOGLOBIN 30 pg (25-35); MEAN CORPUSCULAR HGB CONC 33 g/dL (31-37); MEAN CORPUSCULAR VOLUME 90 fL (79-100); MONO # 0.5 x10^3/uL (0.0-1.1); MONO % 6 % (0-9); NEUT # 5.3 x10^3uL (1.8-7.7); NEUT % 67 % (31-73); PLATELET COUNT 232 x10^3/uL (140-400); RED BLOOD COUNT 4.77 x10^6/uL (4.30-5.70); RED CELL DISTRIBUTION WIDTH 13.6 % (11.5-14.5); WHITE BLOOD COUNT 7.9 x10^3/uL (4.0-11.0)
[2017-06-29 13:22] VITALS: BP 142/79
--- NOTE | 2017-06-29 19:22 | PN ---
DATE: 06/28/2017 PSYCHIATRIC PROGRESS NOTE This late entry 06/28/2017 covers elements not covered in my initial note of 06/28/2017. I met with the patient in the evening of 06/28/2017. Per nursing report, the patient remains fairly confused, slept 3 hours previous evening despite trazodone being repeated. He is angry at shower time punching at staff and the wall. REVIEW OF SYSTEMS: No CV, , eye, ENT or pulmonary system symptoms on review. Reliability poor. MENTAL STATUS EXAM: Oriented to himself. Insight, judgment, recent and remote memory, attention, concentration, fund of knowledge poor, consistent with his diagnosis. He is oblivious of his surroundings, smiling at me, disorganized. LABORATORY DATA: Reviewed. IMPRESSION: Unchanged from initial note. PLAN: Continue current psychotropics. Reviewed drug interactions. Risk/benefit ratio favors no further change. Tegretol level therapeutic at 8.8. Trazodone will be increased on 06/29/2017 to 100 mg p.o. at bedtime, may repeat x 1 for insomnia. Inderal increased to 20 mg 3 times a day for his impulse control problems. Reviewed drug interactions. Risk/benefit ratio favors no further change. CHERIE LOMBARDO MD DR: OMAR/kyle JOB#: [id number] / [id number]
[2017-06-29] MEDS: MIRTAZAPINE 7.5 MG TABLET. PO SCH (20:18)
[2017-06-29] MEDS: TAMSULOSIN 0.4 MG CAP.ER.24H. PO SCH (20:18)
[2017-06-29] MEDS: ATORVASTATIN CALCIUM 20 MG TABLET PO SCH (20:18)
[2017-06-29] MEDS: DONEPEZIL HCL 10 MG TABLET PO SCH (20:18)
[2017-06-29] MEDS: traZODone 100 MG TABLET. PO SCH (20:19)
--- NOTE | 2017-06-29 22:04 | PDOC ---
Exam Gunnar Demential Exam: Gunnar Note: Please also refer to the separate dictated note~for this date of service dictated separately.~Patient seen individually. Discussed the patient with Nursing staff reviewed the chart.~Reviewed interim history and current functioning. Reviewed vital signs,~Labs/ Radiology~and current medications noted below. Continue current treatment with the changes noted in the dictated addendum note Assessment: Vital Signs: Vital Signs Date Time Temp Pulse Resp B/P (MAP) Pulse Ox O2 Delivery O2 Flow Rate FiO2 06/29/17 16:32 98.4 63 19 92 06/29/17 13:25 142/79 06/29/17 06:02 Room Air I&O Intake and Output 06/30/17 07:00 Intake Total 600 ml Balance 600 ml Intake Oral 600 ml Labs: Laboratory Tests Test 06/29/17 08:57 White Blood Count 7.9 x10^3/uL (4.0-11.0) Red Blood Count 4.77 x10^6/uL (4.30-5.70) Hemoglobin 14.3 g/dL (13.0-17.5) Hematocrit 43.0 % (39.0-53.0) Mean Corpuscular Volume 90 fL (79-100) Mean Corpuscular Hemoglobin 30 pg (25-35) Mean Corpuscular Hemoglobin Concent 33 g/dL (31-37) Red Cell Distribution Width 13.6 % (11.5-14.5) Platelet Count 232 x10^3/uL (140-400) Neutrophils (%) (Auto) 67 % (31-73) Lymphocytes (%) (Auto) 21 % (24-48) L Monocytes (%) (Auto) 6 % (0-9) Eosinophils (%) (Auto) 5 % (0-3) H Basophils (%) (Auto) 1 % (0-3) Neutrophils # (Auto) 5.3 x10^3uL (1.8-7.7) Lymphocytes # (Auto) 1.7 x10^3/uL (1.0-4.8) Monocytes # (Auto) 0.5 x10^3/uL (0.0-1.1) Eosinophils # (Auto) 0.4 x10^3/uL (0.0-0.7) Basophils # (Auto) 0.1 x10^3/uL (0.0-0.2) Sodium Level 137 mmol/L (136-145) Potassium Level 3.8 mmol/L (3.5-5.1) Chloride Level 101 mmol/L (98-107) Carbon Dioxide Level 31 mmol/L (21-32) Anion Gap 5 (6-14) L Blood Urea Nitrogen 10 mg/dL (8-26) Creatinine 0.8 mg/dL (0.7-1.3) Estimated GFR (Cockcroft-Gault) 96.1 BUN/Creatinine Ratio 13 (6-20) Glucose Level 125 mg/dL (70-99) H Calcium Level 8.7 mg/dL (8.5-10.1) Total Bilirubin 0.3 mg/dL (0.2-1.0) Aspartate Amino Transferase (AST) 19 U/L (15-37) Alanine Aminotransferase (ALT) 30 U/L (16-63) Alkaline Phosphatase 124 U/L (46-116) H Total Protein 8.2 g/dL (6.4-8.2) Albumin 3.7 g/dL (3.4-5.0) Albumin/Globulin Ratio 0.8 (1.0-1.7) L Current Medications: Meds: Current Medications Acetaminophen (Tylenol) 650 mg PRN Q6HRS PRN PO PAIN / TEMP Last administered on 06/25/17 20:31; Start 06/23/17 at 22:30 Multi-Ingredient Ointment (Analgesic [place]) 1 brittney PRN QID PRN TP MUSCLE PAIN; Start 06/23/17 at 22:30 Al Hydroxide/Mg Hydroxide (Mylanta Plus Xs) 15 ml PRN AFTMEALHC PRN PO DYSPEPSIA; Start 06/23/17 at 22:30 Magnesium Hydroxide (Milk Of Magnesia) 2,400 mg PRN QHS PRN PO CONSTIPATION; Start 06/23/17 at 22:30 Citalopram Hydrobromide (CeleXA) 10 mg DAILY PO Last administered on 08:35; Start 06/24/17 at 09:00 Clonazepam (KlonoPIN) 0.5 mg PRN BID PRN PO ANXIETY / AGITATION Last administered on 06/29/17 15:38; Start 06/23/17 at 22:30 Donepezil HCl (Aricept) 10 mg QHS PO Last administered on 06/29/17 20:18; Start 06/24/17 at 21:00 Atorvastatin Calcium (Lipitor) 20 mg QHS PO Last administered on 06/29/17 20: 18; Start 06/24/17 at 21:00 Levothyroxine Sodium (Synthroid) 175 mcg DAILY07 PO Last administered on 08:07; Start 06/24/17 at 07:00; Stop 06/25/17 at 13:17; Status DC Ondansetron HCl (Zofran Odt) 4 mg PRN Q8HRS PRN PO NAUSEA/VOMITING; Start at 22:45 Tamsulosin HCl (Flomax) 0.4 mg QHS PO Last administered on 06/29/17 20:18; Start 06/24/17 at 21:00 Carbamazepine (TEGretol XR) 400 mg BID PO Last administered on 06/29/17 20:18 ; Start 06/24/17 at 09:00 Cyanocobalamin (Vitamin B-12) 1,000 mcg DAILY PO Last administered on 08:35; Start 06/24/17 at 09:00 Vitamin D (Vitamin D3) 50,000 unit WEEKLY PO ; Start 07/02/17 at 09:00 Acetaminophen (Tylenol) 650 mg PRN Q6HRS PRN PO PAIN / TEMP; Start 06/24/17 at 06:45; Status UNV Magnesium Hydroxide (Milk Of Magnesia) 2,400 mg PRN DAILY PRN PO CONSTIPATION; Start 06/24/17 at 06:45; Status UNV Mirtazapine (Remeron) 7.5 mg QHS PO Last administered on 06/29/17 20:18; Start 06/24/17 at 21:00 Levothyroxine Sodium (Synthroid) 175 mcg DAILY06 PO Last administered on 04:37; Start 06/26/17 at 06:00 Propranolol HCl (Inderal) 10 mg BID92 PO Last administered on 06/26/17 16:29 ; Start 06/26/17 at 09:00; Stop 06/26/17 at 18:22; Status DC Propranolol HCl (Inderal) 10 mg TID@0900,1300,1700 PO Last administered on 13:46; Start 06/27/17 at 09:00; Stop 06/28/17 at 15:49; Status DC Trazodone HCl (Desyrel) 50 mg QHS PO Last administered on 06/28/17 20:08; Start 06/27/17 at 21:00; Stop 06/29/17 at 07:57; Status DC Propranolol HCl (Inderal) 20 mg TID@1000,1300,1700 PO ; Start 06/28/17 at 17:00 ; Status Cancel Propranolol HCl (Inderal) 20 mg TID@0900,1300,1700 PO Last administered on 13:25; Start 06/28/17 at 17:00 Trazodone HCl (Desyrel) 50 mg PRN QHS PRN PO INSOMNIA; Start 06/29/17 at 21:00 Trazodone HCl (Desyrel) 100 mg QHS PO Last administered on 06/29/17 20:19; Start 06/29/17 at 21:00 Active Scripts Active Reported Zofran Odt (Ondansetron) 4 Mg Tab.rapdis 4 Mg PO PRN Q8HRS PRN Milk Of Magnesia (Magnesium Hydroxide) 400 Mg/5 Ml Oral.susp 2,400 Mg PO PRN DAILY PRN Carbamazepine Er (Carbamazepine) 400 Mg Tab.er.12h 400 Mg PO BID Tylenol (Acetaminophen) 325 Mg Tablet 650 Mg PO PRN Q6HRS PRN Vitamin B-12 (Cyanocobalamin (Vitamin B-12)) 500 Mcg Tablet 1,000 Mcg PO DAILY Citalopram Hbr (Citalopram Hydrobromide) 10 Mg Tablet 10 Mg PO DAILY Levothyroxine Sodium 175 Mcg Tablet 175 Mcg PO DAILY07 Donepezil Hcl 10 Mg Tablet 10 Mg PO QHS Atorvastatin Calcium 20 Mg Tablet 20 Mg PO QHS Tamsulosin Hcl 0.4 Mg Cap.er.24h 0.4 Mg PO QHS Clonazepam 0.5 Mg Tablet 0.5 Mg PO PRN BID PRN Vitamin D2 (Ergocalciferol (Vitamin D2)) 50,000 Unit Capsule 50,000 Units PO QTU Diagnosis: Problems: (1) Dementia (2) Behavioral problem (3) Anxiety disorder (4) Bipolar affective, mixed, severe (5) Dementia, vascular, with depression (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
[2017-06-30] MEDS: traZODone 50 MG TABLET. PO PRN (00:21)
[2017-06-30 06:09] VITALS: BP 125/88
[2017-06-30] MEDS: CITALOPRAM 10 MG TABLET. PO SCH (08:33)
[2017-06-30] MEDS: LEVOTHYROXINE 175 MCG TABLET PO SCH (08:33)
[2017-06-30] MEDS: carBAMazepine XR 200 MG TAB.ER.12H PO SCH ×2 (08:35→19:33)
[2017-06-30] MEDS: CYANOCOBALAMIN (VITAMIN B-12) 1,000 MCG TABLET. PO SCH (08:35)
[2017-06-30] MEDS: PROPRANOLOL 10 MG TABLET. PO SCH ×3 (08:35→17:02)
--- NOTE | 2017-06-30 12:33 | PN ---
DATE: 06/29/2017 This note covers elements not covered on my initial note of 06/29/2017. SUBJECTIVE: The patient remains confused, oblivious of his surroundings, had a good night. REVIEW OF SYSTEMS: No CV, , pulmonary, eye, ENT system symptoms on review. ____ a little better. Trazodone has been increased. MENTAL STATUS EXAM: Oriented to himself. Insight, judgment, recent and remote memory, attention, concentration, fund of knowledge poor, consistent with his diagnosis mentioned in my initial note. PLAN: Continue current psychotropics, reviewed drug interactions, risk/benefit ratio favors no further change, trazodone was increased and this is helping. CHERIE LOMBARDO MD DR: OMAR/kyle JOB#: [id number] / [id number]
[2017-06-30 13:34] VITALS: BP 121/60
[2017-06-30 16:13] VITALS: BP 127/64
[2017-06-30] MEDS: ATORVASTATIN CALCIUM 20 MG TABLET PO SCH (19:32)
[2017-06-30] MEDS: DONEPEZIL HCL 10 MG TABLET PO SCH (19:32)
[2017-06-30] MEDS: traZODone 100 MG TABLET. PO SCH (19:32)
[2017-06-30] MEDS: TAMSULOSIN 0.4 MG CAP.ER.24H. PO SCH (19:33)
[2017-06-30] MEDS: MIRTAZAPINE 7.5 MG TABLET. PO SCH (19:33)
[2017-07-01] MEDS: LEVOTHYROXINE 175 MCG TABLET PO SCH (05:37)
[2017-07-01 06:14] VITALS: BP 142/81
[2017-07-01] MEDS: CITALOPRAM 10 MG TABLET. PO SCH (08:01)
[2017-07-01] MEDS: PROPRANOLOL 10 MG TABLET. PO SCH ×3 (08:01→17:06)
[2017-07-01] MEDS: carBAMazepine XR 200 MG TAB.ER.12H PO SCH ×2 (08:02→19:35)
[2017-07-01] MEDS: CYANOCOBALAMIN (VITAMIN B-12) 1,000 MCG TABLET. PO SCH (08:02)
[2017-07-01 12:32] VITALS: BP 140/84
[2017-07-01 16:15] VITALS: BP 147/93
[2017-07-01] MEDS: traZODone 100 MG TABLET. PO SCH (19:34)
[2017-07-01] MEDS: MIRTAZAPINE 7.5 MG TABLET. PO SCH (19:34)
[2017-07-01] MEDS: ATORVASTATIN CALCIUM 20 MG TABLET PO SCH (19:34)
[2017-07-01] MEDS: DONEPEZIL HCL 10 MG TABLET PO SCH (19:35)
[2017-07-01] MEDS: TAMSULOSIN 0.4 MG CAP.ER.24H. PO SCH (19:35)
[2017-07-01] MEDS: DIVALPROEX ER 500 MG TAB.ER.24H PO SCH (19:36)
[2017-07-01] MEDS: traZODone 50 MG TABLET. PO PRN (22:29)
[2017-07-02] MEDS: LEVOTHYROXINE 175 MCG TABLET PO SCH (06:17)
[2017-07-02 06:41] VITALS: BP 145/82
[2017-07-02] MEDS: CITALOPRAM 10 MG TABLET. PO SCH (08:33)
[2017-07-02] MEDS: PROPRANOLOL 10 MG TABLET. PO SCH ×3 (08:33→16:55)
[2017-07-02] MEDS: CYANOCOBALAMIN (VITAMIN B-12) 1,000 MCG TABLET. PO SCH (08:33)
[2017-07-02] MEDS: carBAMazepine XR 200 MG TAB.ER.12H PO SCH ×2 (08:33→19:50)
[2017-07-02] MEDS: CHOLECALCIFEROL (VITAMIN D3) 50,000 UNIT CAPSULE PO SCH (08:34)
--- NOTE | 2017-07-02 09:22 | PN ---
DATE: 07/01/2017 SUBJECTIVE: The patient was seen today, met with the staff, chart reviewed. Staff is concerned about patient's explosive temper. He has a history of TBI. No recent fall, has a walker. The patient is constantly yelling, confused, and sexually inappropriate. OBJECTIVE: VITAL SIGNS: Temperature 98.3, blood pressure 142/81, pulse 80, respiration 18, O2 sat 92%. GENERAL: Slept about 6 hours last night. Appetite fair. MEDICATIONS: The patient's current medications include trazodone 100 mg at night, mirtazapine 7.5 mg at night, Aricept 10 mg at night, Tegretol 400 mg b.i.d., Celexa 10 mg daily, Klonopin 0.5 mg b.i.d. p.r.n. LABORATORY DATA: The patient's labs reviewed. ASSESSMENT: Dementia, most likely Alzheimer's with behavior problems. PLANS: To continue with the treatment and adjust the medications accordingly. Length of stay, 3 to 5 days. The patient will be started on Depakote ER 500 mg at night. BELEN VENTURA MD DR: PENNY/kyle JOB#: [id number] / [id number]
[2017-07-02 15:33] VITALS: BP 138/88
[2017-07-02] MEDS: MIRTAZAPINE 7.5 MG TABLET. PO SCH (19:50)
[2017-07-02] MEDS: DONEPEZIL HCL 10 MG TABLET PO SCH (19:50)
[2017-07-02] MEDS: ATORVASTATIN CALCIUM 20 MG TABLET PO SCH (19:50)
[2017-07-02] MEDS: TAMSULOSIN 0.4 MG CAP.ER.24H. PO SCH (19:50)
[2017-07-02] MEDS: DIVALPROEX ER 500 MG TAB.ER.24H PO SCH (19:50)
[2017-07-02] MEDS: traZODone 100 MG TABLET. PO SCH (19:50)
--- NOTE | 2017-07-03 01:42 | PN ---
DATE: 07/02/2017 SUBJECTIVE: The patient was seen today, met with the staff, chart reviewed. The patient continued to have problems, increased agitation, angry outbursts, constantly yelling and also sexually inappropriate with the others. The patient is able to walk with a walker. No falls. OBJECTIVE: VITAL SIGNS: Temperature 97.8, blood pressure 145/82, pulse 71, respirations 18, O2 sat 94%. Slept 5 hours last night. CURRENT MEDICATIONS: Include Klonopin 0.5 mg b.i.d. p.r.n., Aricept 10 mg daily, Tegretol 400 mg b.i.d., citalopram 10 mg daily, Remeron 7.5 mg at night, Inderal 20 mg t.i.d., trazodone 100 mg at night. ASSESSMENT: Dementia, most likely Alzheimer's with behavior problems. PLAN: To continue with the treatment. Length of stay 5 days. BELEN VENTURA MD DR: PENNY/kyle JOB#: [id number] / [id number]
[2017-07-03] MEDS: LEVOTHYROXINE 175 MCG TABLET PO SCH (05:06)
[2017-07-03 06:10] VITALS: BP 129/68
[2017-07-03] MEDS: carBAMazepine XR 200 MG TAB.ER.12H PO SCH ×2 (08:20→19:20)
[2017-07-03] MEDS: CYANOCOBALAMIN (VITAMIN B-12) 1,000 MCG TABLET. PO SCH (08:20)
[2017-07-03] MEDS: PROPRANOLOL 10 MG TABLET. PO SCH ×3 (08:20→18:13)
[2017-07-03] MEDS: CITALOPRAM 10 MG TABLET. PO SCH (08:20)
[2017-07-03 16:19] VITALS: BP 123/72
[2017-07-03] MEDS: DIVALPROEX ER 500 MG TAB.ER.24H PO SCH (19:20)
[2017-07-03] MEDS: DONEPEZIL HCL 10 MG TABLET PO SCH (19:20)
[2017-07-03] MEDS: MIRTAZAPINE 7.5 MG TABLET. PO SCH (19:20)
[2017-07-03] MEDS: traZODone 100 MG TABLET. PO SCH (19:20)
[2017-07-03] MEDS: TAMSULOSIN 0.4 MG CAP.ER.24H. PO SCH (19:21)
[2017-07-03] MEDS: ATORVASTATIN CALCIUM 20 MG TABLET PO SCH (19:21)
--- NOTE | 2017-07-04 04:41 | PN ---
DATE: 07/03/2017 SUBJECTIVE: The patient was seen today, met with the staff, chart reviewed. Staff reports continued behavior problems including being sexually inappropriate at times. Apparently was found on the floor with no injuries. The patient continues to pace a lot. The patient is confused most of the time. OBSERVATION: VITAL SIGNS: Temperature 97.1, blood pressure 129/68, pulse 69, respiration 18, O2 sat 94%. Slept about 6 hours last night. CURRENT MEDICATIONS: The patient's current medications include Klonopin 0.5 mg b.i.d. p.r.n., Aricept 10 mg daily, Tegretol 400 mg b.i.d., citalopram 10 mg daily, Remeron 7.5 mg at night, trazodone 100 mg at night. He is not having any side effects, no other major medical issues. ASSESSMENT: Dementia, most likely Alzheimer's with behavior problems. PLAN: To continue with the treatment. BELEN VENTURA MD DR: PENNY/kyle JOB#: [id number] / [id number]
[2017-07-04] MEDS: LEVOTHYROXINE 175 MCG TABLET PO SCH (05:37)
[2017-07-04 06:02] VITALS: BP 150/74
[2017-07-04] MEDS: carBAMazepine XR 200 MG TAB.ER.12H PO SCH ×2 (08:19→20:37)
[2017-07-04] MEDS: PROPRANOLOL 10 MG TABLET. PO SCH ×3 (08:19→17:24)
[2017-07-04] MEDS: CYANOCOBALAMIN (VITAMIN B-12) 1,000 MCG TABLET. PO SCH (08:19)
[2017-07-04] MEDS: CITALOPRAM 10 MG TABLET. PO SCH (08:19)
[2017-07-04 09:40] LABS: BASO # 0.1 x10^3/uL (0.0-0.2); BASO % 1 % (0-3); EOS # 0.4 x10^3/uL (0.0-0.7); EOS % 3 % (0-3); HEMATOCRIT 42.7 % (39.0-53.0); HEMOGLOBIN 14.6 g/dL (13.0-17.5); LYMPH # 1.6 x10^3/uL (1.0-4.8); LYMPH % 15 % (24-48); MEAN CORPUSCULAR HEMOGLOBIN 31 pg (25-35); MEAN CORPUSCULAR HGB CONC 34 g/dL (31-37); MEAN CORPUSCULAR VOLUME 90 fL (79-100); MONO # 0.9 x10^3/uL (0.0-1.1); MONO % 8 % (0-9); NEUT # 7.8 x10^3uL (1.8-7.7); NEUT % 73 % (31-73); PLATELET COUNT 233 x10^3/uL (140-400); RED BLOOD COUNT 4.77 x10^6/uL (4.30-5.70); RED CELL DISTRIBUTION WIDTH 13.5 % (11.5-14.5); WHITE BLOOD COUNT 10.7 x10^3/uL (4.0-11.0)
[2017-07-04 09:53] LABS: ALBUMIN 3.9 g/dL (3.4-5.0); ALBUMIN/GLOBULIN RATIO 0.8 (1.0-1.7); ALK PHOS 132 U/L (46-116); ALT (SGPT) 31 U/L (16-63); ANION GAP 3 (6-14); AST (SGOT) 19 U/L (15-37); BLOOD UREA NITROGEN 11 mg/dL (8-26); BUN/CREATININE RATIO 14 (6-20); CALCIUM 9.3 mg/dL (8.5-10.1); CARBON DIOXIDE 33 mmol/L (21-32); CHLORIDE 102 mmol/L (98-107); CREATININE 0.8 mg/dL (0.7-1.3); GFR 96.1; GLUCOSE 100 mg/dL (70-99); MAGNESIUM 2.3 mg/dL (1.8-2.4); POTASSIUM 4.2 mmol/L (3.5-5.1); SODIUM 138 mmol/L (136-145); TOTAL BILIRUBIN 0.3 mg/dL (0.2-1.0); TOTAL PROTEIN 8.5 g/dL (6.4-8.2)
[2017-07-04 09:54] LABS: VAL ACID 26 mcg/mL (50-100)
[2017-07-04 13:34] VITALS: BP 120/81
[2017-07-04 15:04] LABS: CARBAM 8.7 mcg/mL (4.0-12.0)
[2017-07-04 15:38] VITALS: BP 122/62
[2017-07-04] MEDS: DONEPEZIL HCL 10 MG TABLET PO SCH (20:37)
[2017-07-04] MEDS: ATORVASTATIN CALCIUM 20 MG TABLET PO SCH (20:37)
[2017-07-04] MEDS: DIVALPROEX ER 500 MG TAB.ER.24H PO SCH (20:37)
[2017-07-04] MEDS: TAMSULOSIN 0.4 MG CAP.ER.24H. PO SCH (20:37)
[2017-07-04] MEDS: MIRTAZAPINE 7.5 MG TABLET. PO SCH (20:37)
[2017-07-04] MEDS: traZODone 100 MG TABLET. PO SCH (20:37)
[2017-07-05] MEDS: LEVOTHYROXINE 175 MCG TABLET PO SCH (05:22)
[2017-07-05 05:53] VITALS: BP 110/73
--- NOTE | 2017-07-05 08:09 | PN ---
DATE: 07/04/2017 SUBJECTIVE: I discussed the patient's diagnosis, treatment, behaviors, and discharge option in the staff meet, staff review today. The patient continues to be agitated, verbally abusive, not able to control his temper at times. The patient is also resistive to care. The patient's valproic acid level was 2.6 and Tegretol level was 8.7. OBSERVATION: VITAL SIGNS: Temperature 97.1, blood pressure 130/74, pulse 63, respirations 18, O2 sat 91%. He slept about 8 hours last night. The patient is not having any problems with the medications. CURRENT MEDICATIONS: Klonopin 0.5 mg b.i.d. p.r.n., Aricept 10 mg daily, Tegretol 400 mg b.i.d., citalopram 10 mg daily, Remeron 7.5 mg at night, trazodone 100 mg at night. ASSESSMENT: Dementia, most likely Alzheimer's with behavior problems. PLAN: To continue with the treatment. BELEN VENTURA MD DR: PENNY/kyle JOB#: [id number] / [id number]
[2017-07-05] MEDS: CYANOCOBALAMIN (VITAMIN B-12) 1,000 MCG TABLET. PO SCH ×2 (08:26→09:00)
[2017-07-05] MEDS: CITALOPRAM 10 MG TABLET. PO SCH ×2 (08:26→09:00)
[2017-07-05] MEDS: carBAMazepine XR 200 MG TAB.ER.12H PO SCH ×4 (08:26→21:00)
[2017-07-05 08:30] VITALS: BP 150/73
[2017-07-05] MEDS: PROPRANOLOL 10 MG TABLET. PO SCH ×4 (08:30→16:21)
[2017-07-05 16:41] VITALS: BP 147/72
[2017-07-05] MEDS: DONEPEZIL HCL 10 MG TABLET PO SCH ×2 (20:33→21:00)
[2017-07-05] MEDS: TAMSULOSIN 0.4 MG CAP.ER.24H. PO SCH ×2 (20:33→21:00)
[2017-07-05] MEDS: ATORVASTATIN CALCIUM 20 MG TABLET PO SCH ×2 (20:33→21:00)
[2017-07-05] MEDS: DIVALPROEX ER 500 MG TAB.ER.24H PO SCH ×2 (20:34→21:00)
[2017-07-05] MEDS: HYDROCORTISONE 1% TOPICAL OINTMENT 30GM TUBE. TP SCH ×2 (20:36→21:00)
[2017-07-06] MEDS: LEVOTHYROXINE 175 MCG TABLET PO SCH (05:47)
[2017-07-06] MEDS: carBAMazepine XR 200 MG TAB.ER.12H PO SCH ×2 (05:51→20:16)
[2017-07-06 06:00] VITALS: BP 129/78
[2017-07-06] MEDS: HYDROCORTISONE 1% TOPICAL OINTMENT 30GM TUBE. TP SCH ×2 (09:00→20:16)
[2017-07-06] MEDS: PROPRANOLOL 10 MG TABLET. PO SCH ×4 (09:00→17:03)
[2017-07-06] MEDS: CYANOCOBALAMIN (VITAMIN B-12) 1,000 MCG TABLET. PO SCH (09:00)
[2017-07-06] MEDS: CITALOPRAM 10 MG TABLET. PO SCH (09:00)
--- NOTE | 2017-07-06 11:50 | PN ---
DATE: 07/05/2017 SUBJECTIVE: The patient was seen today, met with the staff, chart reviewed. The patient currently staying in bed. The patient apparently complains of feeling lethargic. The patient is not showing any other side effects. OBSERVATION: VITAL SIGNS: Stable. The patient's sleep, appetite is fair. MEDICATIONS: The patient's current medications include Depakote 500 mg at night, Tegretol 400 mg b.i.d., citalopram 10 mg daily, trazodone 50 mg at night p.r.n. The patient's mirtazapine 7.5 mg at night was discontinued and also trazodone 100 mg at night discontinued because of the patient's increased sedation. ASSESSMENT: Dementia, most likely Alzheimer's with behavior problems. PLAN: To continue with the treatment. BELEN VENTURA MD DR: PENNY/kyle JOB#: [id number] / [id number]
[2017-07-06 16:00] VITALS: BP 121/86
[2017-07-06] MEDS: DIVALPROEX ER 500 MG TAB.ER.24H PO SCH (20:15)
[2017-07-06] MEDS: DONEPEZIL HCL 10 MG TABLET PO SCH (20:15)
[2017-07-06] MEDS: ATORVASTATIN CALCIUM 20 MG TABLET PO SCH (20:15)
[2017-07-06] MEDS: TAMSULOSIN 0.4 MG CAP.ER.24H. PO SCH (20:16)
--- NOTE | 2017-07-07 02:59 | PN ---
DATE: 07/06/2017 SUBJECTIVE: The patient was seen today, met with the staff, chart reviewed. The patient apparently refusing his medications. The patient is alert. The patient is calmer today, but continues to have poor impulse control and low frustration tolerance. OBSERVATION: VITAL SIGNS: Temperature 97.6, blood pressure 129/78, pulse 88, respirations 20, O2 sat 95%. Slept about 4 hours last night. CURRENT MEDICATIONS: The patient's lab reviewed. The patient's medications include Depakote 500 mg at night, trazodone 50 mg at night p.r.n., and Aricept 10 mg at night, Tegretol 400 mg b.i.d., citalopram 10 mg daily. ASSESSMENT: Dementia, most likely Alzheimer's with behavior problems. PLAN: The patient will continue with the treatment. The patient's Remeron 7.5 mg to be discontinued and also trazodone 100 mg at night to be discontinued. BELEN VENTURA MD DR: PENNY/klye JOB#: [id number] / [id number]
[2017-07-07] MEDS: LEVOTHYROXINE 175 MCG TABLET PO SCH (05:39)
[2017-07-07 06:02] VITALS: BP 111/69
[2017-07-07] MEDS: CITALOPRAM 10 MG TABLET. PO SCH (08:14)
[2017-07-07] MEDS: carBAMazepine XR 200 MG TAB.ER.12H PO SCH ×2 (08:15→19:50)
[2017-07-07] MEDS: PROPRANOLOL 10 MG TABLET. PO SCH ×3 (08:15→17:13)
[2017-07-07] MEDS: CYANOCOBALAMIN (VITAMIN B-12) 1,000 MCG TABLET. PO SCH (08:15)
[2017-07-07] MEDS: HYDROCORTISONE 1% TOPICAL OINTMENT 30GM TUBE. TP SCH ×2 (08:22→19:51)
[2017-07-07 10:34] VITALS: BP 122/78
[2017-07-07 13:24] VITALS: BP 132/87
[2017-07-07 16:54] VITALS: BP 122/70
[2017-07-07] MEDS: ATORVASTATIN CALCIUM 20 MG TABLET PO SCH (19:50)
[2017-07-07] MEDS: DONEPEZIL HCL 10 MG TABLET PO SCH (19:50)
[2017-07-07] MEDS: DIVALPROEX ER 500 MG TAB.ER.24H PO SCH (19:51)
[2017-07-07] MEDS: TAMSULOSIN 0.4 MG CAP.ER.24H. PO SCH (19:51)
[2017-07-08] MEDS: LEVOTHYROXINE 175 MCG TABLET PO SCH (05:26)
[2017-07-08 06:31] VITALS: BP 119/60
[2017-07-08] MEDS: CITALOPRAM 10 MG TABLET. PO SCH (08:09)
[2017-07-08] MEDS: PROPRANOLOL 10 MG TABLET. PO SCH ×3 (08:09→16:24)
[2017-07-08] MEDS: carBAMazepine XR 200 MG TAB.ER.12H PO SCH ×2 (08:09→20:03)
[2017-07-08] MEDS: CYANOCOBALAMIN (VITAMIN B-12) 1,000 MCG TABLET. PO SCH (08:09)
[2017-07-08] MEDS: HYDROCORTISONE 1% TOPICAL OINTMENT 30GM TUBE. TP SCH ×2 (08:11→20:06)
--- NOTE | 2017-07-08 12:44 | PN ---
DATE: 07/07/2017 SUBJECTIVE: The patient was seen today, met with the staff, chart reviewed. The patient's behavior remains the same, impulsive, low frustration tolerance, irritability and also noncompliant with the treatment, refusing the medications at times. OBSERVATION: VITAL SIGNS: Temperature 98.6, blood pressure 111/69, pulse 102, respirations 16, O2 sat 92%. Slept about 5 hours last night. CURRENT MEDICATIONS: The patient's current medications include Depakote 500 mg at night, Aricept 10 mg at night, Tegretol 400 mg b.i.d., citalopram 10 mg daily. The patient is not having any side effects to the medications. ASSESSMENT: Dementia, most likely Alzheimer's with behavior problems. PLAN: To continue with the treatment. BELEN VENTURA MD DR: PENNY/kyle JOB#: [id number] / [id number]
[2017-07-08 13:52] VITALS: BP 132/57
[2017-07-08 16:07] VITALS: BP 123/60
[2017-07-08] MEDS: traZODone 50 MG TABLET. PO PRN ×2 (16:23→20:05)
[2017-07-08] MEDS: ATORVASTATIN CALCIUM 20 MG TABLET PO SCH (20:03)
[2017-07-08] MEDS: TAMSULOSIN 0.4 MG CAP.ER.24H. PO SCH (20:03)
[2017-07-08] MEDS: DONEPEZIL HCL 10 MG TABLET PO SCH (20:03)
[2017-07-08] MEDS: DIVALPROEX ER 250 MG TAB.ER.24H. PO SCH (20:05)
--- NOTE | 2017-07-08 20:50 | PDOC ---
Exam Gunnar Demential Exam: Gunnar Note: Please also refer to the separate dictated note~for this date of service dictated separately.~Patient seen individually. Discussed the patient with Nursing staff reviewed the chart.~Reviewed interim history and current functioning. Reviewed vital signs,~Labs/ Radiology~and current medications noted below. Continue current treatment with the changes noted in the dictated addendum note Assessment: Vital Signs: Vital Signs Date Time Temp Pulse Resp B/P (MAP) Pulse Ox O2 Delivery O2 Flow Rate FiO2 07/08/17 16:24 76 123/60 07/08/17 16:07 98.2 18 95 07/08/17 06:31 Room Air I&O Intake and Output 07/09/17 07:00 Intake Total 720 ml Balance 720 ml Intake Oral 720 ml Current Medications: Meds: Current Medications Acetaminophen (Tylenol) 650 mg PRN Q6HRS PRN PO PAIN / TEMP Last administered on 06/25/17 20:31; Start 06/23/17 at 22:30 Multi-Ingredient Ointment (Analgesic [place]) 1 brittney PRN QID PRN TP MUSCLE PAIN; Start 06/23/17 at 22:30 Al Hydroxide/Mg Hydroxide (Mylanta Plus Xs) 15 ml PRN AFTMEALHC PRN PO DYSPEPSIA; Start 06/23/17 at 22:30 Magnesium Hydroxide (Milk Of Magnesia) 2,400 mg PRN QHS PRN PO CONSTIPATION; Start 06/23/17 at 22:30 Citalopram Hydrobromide (CeleXA) 10 mg DAILY PO Last administered on 08:09; Start 06/24/17 at 09:00 Clonazepam (KlonoPIN) 0.5 mg PRN BID PRN PO ANXIETY / AGITATION Last administered on 06/29/17 15:38; Start 06/23/17 at 22:30 Donepezil HCl (Aricept) 10 mg QHS PO Last administered on 07/08/17 20:03; Start 06/24/17 at 21:00 Atorvastatin Calcium (Lipitor) 20 mg QHS PO Last administered on 07/08/17 20: 03; Start 06/24/17 at 21:00 Levothyroxine Sodium (Synthroid) 175 mcg DAILY07 PO Last administered on 08:07; Start 06/24/17 at 07:00; Stop 06/25/17 at 13:17; Status DC Ondansetron HCl (Zofran Odt) 4 mg PRN Q8HRS PRN PO NAUSEA/VOMITING; Start at 22:45 Tamsulosin HCl (Flomax) 0.4 mg QHS PO Last administered on 07/08/17 20:03; Start 06/24/17 at 21:00 Carbamazepine (TEGretol XR) 400 mg BID PO Last administered on 07/08/17 20:03 ; Start 06/24/17 at 09:00 Cyanocobalamin (Vitamin B-12) 1,000 mcg DAILY PO Last administered on 08:09; Start 06/24/17 at 09:00 Vitamin D (Vitamin D3) 50,000 unit WEEKLY PO Last administered on 07/02/17 08 :34; Start 07/02/17 at 09:00 Acetaminophen (Tylenol) 650 mg PRN Q6HRS PRN PO PAIN / TEMP; Start 06/24/17 at 06:45; Status UNV Magnesium Hydroxide (Milk Of Magnesia) 2,400 mg PRN DAILY PRN PO CONSTIPATION; Start 06/24/17 at 06:45; Status UNV Mirtazapine (Remeron) 7.5 mg QHS PO Last administered on 07/04/17 20:37; Start 06/24/17 at 21:00; Stop 07/05/17 at 16:28; Status DC Levothyroxine Sodium (Synthroid) 175 mcg DAILY06 PO Last administered on 05:26; Start 06/26/17 at 06:00 Propranolol HCl (Inderal) 10 mg BID92 PO Last administered on 06/26/17 16:29 ; Start 06/26/17 at 09:00; Stop 06/26/17 at 18:22; Status DC Propranolol HCl (Inderal) 10 mg TID@0900,1300,1700 PO Last administered on 13:46; Start 06/27/17 at 09:00; Stop 06/28/17 at 15:49; Status DC Trazodone HCl (Desyrel) 50 mg QHS PO Last administered on 06/28/17 20:08; Start 06/27/17 at 21:00; Stop 06/29/17 at 07:57; Status DC Propranolol HCl (Inderal) 20 mg TID@1000,1300,1700 PO ; Start 06/28/17 at 17:00 ; Status Cancel Propranolol HCl (Inderal) 20 mg TID@0900,1300,1700 PO Last administered on 16:24; Start 06/28/17 at 17:00 Trazodone HCl (Desyrel) 50 mg PRN QHS PRN PO INSOMNIA Last administered on 20:05; Start 06/29/17 at 21:00 Trazodone HCl (Desyrel) 100 mg QHS PO Last administered on 07/04/17 20:37; Start 06/29/17 at 21:00; Stop 07/05/17 at 16:28; Status DC Divalproex Sodium (Depakote Er) 500 mg QHS PO Last administered on 07/07/17 19:51; Start 07/01/17 at 21:00; Stop 07/08/17 at 19:11; Status DC Hydrocortisone (Cortaid) 1 brittney BID TP Last administered on 07/08/17 20:06; Start 07/05/17 at 21:00 Divalproex Sodium (Depakote Er) 250 mg DAILY PO ; Start 07/09/17 at 09:00; Stop 07/09/17 at 09:00; Status DC Divalproex Sodium (Depakote Er) 750 mg HS PO Last administered on 07/08/17 20 :05; Start 07/08/17 at 21:00 Active Scripts Active Reported Zofran Odt (Ondansetron) 4 Mg Tab.rapdis 4 Mg PO PRN Q8HRS PRN Milk Of Magnesia (Magnesium Hydroxide) 400 Mg/5 Ml Oral.susp 2,400 Mg PO PRN DAILY PRN Carbamazepine Er (Carbamazepine) 400 Mg Tab.er.12h 400 Mg PO BID Tylenol (Acetaminophen) 325 Mg Tablet 650 Mg PO PRN Q6HRS PRN Vitamin B-12 (Cyanocobalamin (Vitamin B-12)) 500 Mcg Tablet 1,000 Mcg PO DAILY Citalopram Hbr (Citalopram Hydrobromide) 10 Mg Tablet 10 Mg PO DAILY Levothyroxine Sodium 175 Mcg Tablet 175 Mcg PO DAILY07 Donepezil Hcl 10 Mg Tablet 10 Mg PO QHS Atorvastatin Calcium 20 Mg Tablet 20 Mg PO QHS Tamsulosin Hcl 0.4 Mg Cap.er.24h 0.4 Mg PO QHS Clonazepam 0.5 Mg Tablet 0.5 Mg PO PRN BID PRN Vitamin D2 (Ergocalciferol (Vitamin D2)) 50,000 Unit Capsule 50,000 Units PO QTU Diagnosis: Problems: (1) Dementia (2) Behavioral problem (3) Anxiety disorder (4) Bipolar affective, mixed, severe (5) Dementia, vascular, with depression (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
[2017-07-09 05:57] VITALS: BP 159/70
[2017-07-09] MEDS: LEVOTHYROXINE 175 MCG TABLET PO SCH ×2 (06:00→06:20)
[2017-07-09] MEDS: carBAMazepine XR 200 MG TAB.ER.12H PO SCH ×2 (08:37→19:44)
[2017-07-09] MEDS: CYANOCOBALAMIN (VITAMIN B-12) 1,000 MCG TABLET. PO SCH (08:37)
[2017-07-09] MEDS: CITALOPRAM 10 MG TABLET. PO SCH (08:37)
[2017-07-09] MEDS: PROPRANOLOL 10 MG TABLET. PO SCH ×3 (08:37→17:12)
[2017-07-09] MEDS: HYDROCORTISONE 1% TOPICAL OINTMENT 30GM TUBE. TP SCH ×2 (08:38→19:46)
[2017-07-09] MEDS: CHOLECALCIFEROL (VITAMIN D3) 50,000 UNIT CAPSULE PO SCH (08:38)
[2017-07-09] MEDS ORDERED: DIVALPROEX ER 250 MG TAB.ER.24H. PO SCH (09:00)
[2017-07-09 16:17] VITALS: BP 138/68
[2017-07-09] MEDS: ATORVASTATIN CALCIUM 20 MG TABLET PO SCH (19:44)
[2017-07-09] MEDS: TAMSULOSIN 0.4 MG CAP.ER.24H. PO SCH (19:44)
[2017-07-09] MEDS: DONEPEZIL HCL 10 MG TABLET PO SCH (19:44)
[2017-07-09] MEDS: DIVALPROEX ER 250 MG TAB.ER.24H. PO SCH (19:44)
--- NOTE | 2017-07-09 22:14 | PDOC ---
Exam Gunnar Demential Exam: Gunnar Note: Please also refer to the separate dictated note~for this date of service dictated separately.~Patient seen individually. Discussed the patient with Nursing staff reviewed the chart.~Reviewed interim history and current functioning. Reviewed vital signs,~Labs/ Radiology~and current medications noted below. Continue current treatment with the changes noted in the dictated addendum note Assessment: Vital Signs: Vital Signs Date Time Temp Pulse Resp B/P (MAP) Pulse Ox O2 Delivery O2 Flow Rate FiO2 07/09/17 17:12 71 138/68 07/09/17 16:17 98.0 20 97 07/08/17 06:31 Room Air I&O Intake and Output 07/10/17 07:00 Intake Total 480 ml Balance 480 ml Intake Oral 480 ml Current Medications: Meds: Current Medications Acetaminophen (Tylenol) 650 mg PRN Q6HRS PRN PO PAIN / TEMP Last administered on 06/25/17 20:31; Start 06/23/17 at 22:30 Multi-Ingredient Ointment (Analgesic [place]) 1 brittney PRN QID PRN TP MUSCLE PAIN; Start 06/23/17 at 22:30 Al Hydroxide/Mg Hydroxide (Mylanta Plus Xs) 15 ml PRN AFTMEALHC PRN PO DYSPEPSIA; Start 06/23/17 at 22:30 Magnesium Hydroxide (Milk Of Magnesia) 2,400 mg PRN QHS PRN PO CONSTIPATION; Start 06/23/17 at 22:30 Citalopram Hydrobromide (CeleXA) 10 mg DAILY PO Last administered on 08:37; Start 06/24/17 at 09:00 Clonazepam (KlonoPIN) 0.5 mg PRN BID PRN PO ANXIETY / AGITATION Last administered on 06/29/17 15:38; Start 06/23/17 at 22:30 Donepezil HCl (Aricept) 10 mg QHS PO Last administered on 07/09/17 19:44; Start 06/24/17 at 21:00 Atorvastatin Calcium (Lipitor) 20 mg QHS PO Last administered on 07/09/17 19: 44; Start 06/24/17 at 21:00 Levothyroxine Sodium (Synthroid) 175 mcg DAILY07 PO Last administered on 08:07; Start 06/24/17 at 07:00; Stop 06/25/17 at 13:17; Status DC Ondansetron HCl (Zofran Odt) 4 mg PRN Q8HRS PRN PO NAUSEA/VOMITING; Start at 22:45 Tamsulosin HCl (Flomax) 0.4 mg QHS PO Last administered on 07/09/17 19:44; Start 06/24/17 at 21:00 Carbamazepine (TEGretol XR) 400 mg BID PO Last administered on 07/09/17 19:44 ; Start 06/24/17 at 09:00 Cyanocobalamin (Vitamin B-12) 1,000 mcg DAILY PO Last administered on 08:37; Start 06/24/17 at 09:00 Vitamin D (Vitamin D3) 50,000 unit WEEKLY PO Last administered on 07/09/17 08 :38; Start 07/02/17 at 09:00 Acetaminophen (Tylenol) 650 mg PRN Q6HRS PRN PO PAIN / TEMP; Start 06/24/17 at 06:45; Status UNV Magnesium Hydroxide (Milk Of Magnesia) 2,400 mg PRN DAILY PRN PO CONSTIPATION; Start 06/24/17 at 06:45; Status UNV Mirtazapine (Remeron) 7.5 mg QHS PO Last administered on 07/04/17 20:37; Start 06/24/17 at 21:00; Stop 07/05/17 at 16:28; Status DC Levothyroxine Sodium (Synthroid) 175 mcg DAILY06 PO Last administered on 05:26; Start 06/26/17 at 06:00 Propranolol HCl (Inderal) 10 mg BID92 PO Last administered on 06/26/17 16:29 ; Start 06/26/17 at 09:00; Stop 06/26/17 at 18:22; Status DC Propranolol HCl (Inderal) 10 mg TID@0900,1300,1700 PO Last administered on 13:46; Start 06/27/17 at 09:00; Stop 06/28/17 at 15:49; Status DC Trazodone HCl (Desyrel) 50 mg QHS PO Last administered on 06/28/17 20:08; Start 06/27/17 at 21:00; Stop 06/29/17 at 07:57; Status DC Propranolol HCl (Inderal) 20 mg TID@1000,1300,1700 PO ; Start 06/28/17 at 17:00 ; Status Cancel Propranolol HCl (Inderal) 20 mg TID@0900,1300,1700 PO Last administered on 17:12; Start 06/28/17 at 17:00 Trazodone HCl (Desyrel) 50 mg PRN QHS PRN PO INSOMNIA Last administered on 20:05; Start 06/29/17 at 21:00 Trazodone HCl (Desyrel) 100 mg QHS PO Last administered on 07/04/17 20:37; Start 06/29/17 at 21:00; Stop 07/05/17 at 16:28; Status DC Divalproex Sodium (Depakote Er) 500 mg QHS PO Last administered on 07/07/17 19:51; Start 07/01/17 at 21:00; Stop 07/08/17 at 19:11; Status DC Hydrocortisone (Cortaid) 1 brittney BID TP Last administered on 07/09/17 19:46; Start 07/05/17 at 21:00 Divalproex Sodium (Depakote Er) 250 mg DAILY PO ; Start 07/09/17 at 09:00; Stop 07/09/17 at 09:00; Status DC Divalproex Sodium (Depakote Er) 750 mg HS PO Last administered on 07/09/17 19 :44; Start 07/08/17 at 21:00 Active Scripts Active Reported Zofran Odt (Ondansetron) 4 Mg Tab.rapdis 4 Mg PO PRN Q8HRS PRN Milk Of Magnesia (Magnesium Hydroxide) 400 Mg/5 Ml Oral.susp 2,400 Mg PO PRN DAILY PRN Carbamazepine Er (Carbamazepine) 400 Mg Tab.er.12h 400 Mg PO BID Tylenol (Acetaminophen) 325 Mg Tablet 650 Mg PO PRN Q6HRS PRN Vitamin B-12 (Cyanocobalamin (Vitamin B-12)) 500 Mcg Tablet 1,000 Mcg PO DAILY Citalopram Hbr (Citalopram Hydrobromide) 10 Mg Tablet 10 Mg PO DAILY Levothyroxine Sodium 175 Mcg Tablet 175 Mcg PO DAILY07 Donepezil Hcl 10 Mg Tablet 10 Mg PO QHS Atorvastatin Calcium 20 Mg Tablet 20 Mg PO QHS Tamsulosin Hcl 0.4 Mg Cap.er.24h 0.4 Mg PO QHS Clonazepam 0.5 Mg Tablet 0.5 Mg PO PRN BID PRN Vitamin D2 (Ergocalciferol (Vitamin D2)) 50,000 Unit Capsule 50,000 Units PO QTU CHERIE LOMBARDO MD Jul 09, 2017 22:14
--- NOTE | 2017-07-10 02:04 | PN ---
DATE: 07/08/2017 PSYCHIATRIC PROGRESS NOTE This late entry 07/08/2017 covers elements not covered in my initial note of 07/08/2017. SUBJECTIVE: I met with the patient the evening of 07/08/2017. The patient remains confused, somewhat sexually inappropriate at times, the previous evening crawled out of his bed, labile, cursing at times. REVIEW OF SYSTEMS: No CV, , pulmonary, eye, ENT system symptoms on review. Reliability poor. MENTAL STATUS EXAM: Oriented to himself. Insight, judgment, recent and remote memory, attention, concentration, fund of knowledge poor, consistent with his diagnosis mentioned in my initial note. PLAN: Tegretol level therapeutic at 8.7. Valproic acid level subtherapeutic at 26 on 500 mg at bedtime of Depakote ER. We will increase this to 750 mg at bedtime. Check CBC, CMP, valproic acid level in 3 days. Maintain the rest of the psychotropics. Review drug interactions, risk/benefit ratio favors no further change. MAN Maximo LOMBARDO MD DR: OMAR/kyle JOB#: [id number] / [id number]
[2017-07-10] MEDS: LEVOTHYROXINE 175 MCG TABLET PO SCH (05:49)
[2017-07-10 06:04] VITALS: BP 126/77
[2017-07-10] MEDS: carBAMazepine XR 200 MG TAB.ER.12H PO SCH ×2 (08:47→20:12)
[2017-07-10] MEDS: PROPRANOLOL 10 MG TABLET. PO SCH ×3 (08:47→18:06)
[2017-07-10] MEDS: CYANOCOBALAMIN (VITAMIN B-12) 1,000 MCG TABLET. PO SCH (08:47)
[2017-07-10] MEDS: CITALOPRAM 10 MG TABLET. PO SCH (08:47)
[2017-07-10] MEDS: HYDROCORTISONE 1% TOPICAL OINTMENT 30GM TUBE. TP SCH ×2 (08:48→20:56)
[2017-07-10 16:39] VITALS: BP 132/84
[2017-07-10] MEDS: ATORVASTATIN CALCIUM 20 MG TABLET PO SCH (20:11)
[2017-07-10] MEDS: DIVALPROEX ER 250 MG TAB.ER.24H. PO SCH (20:11)
[2017-07-10] MEDS: DONEPEZIL HCL 10 MG TABLET PO SCH (20:12)
[2017-07-10] MEDS: TAMSULOSIN 0.4 MG CAP.ER.24H. PO SCH (20:12)
[2017-07-10] MEDS: traZODone 100 MG TABLET. PO SCH (20:17)
--- NOTE | 2017-07-10 20:59 | PDOC ---
Exam Gunnar Demential Exam: Gunnar Note: Please also refer to the separate dictated note~for this date of service dictated separately.~Patient seen individually. Discussed the patient with Nursing staff reviewed the chart.~Reviewed interim history and current functioning. Reviewed vital signs,~Labs/ Radiology~and current medications noted below. Continue current treatment with the changes noted in the dictated addendum note Assessment: Vital Signs: Vital Signs Date Time Temp Pulse Resp B/P (MAP) Pulse Ox O2 Delivery O2 Flow Rate FiO2 07/10/17 18:06 66 132/84 07/10/17 16:39 97.6 18 93 Room Air I&O Intake and Output 07/11/17 07:00 Intake Total 960 ml Balance 960 ml Intake Oral 960 ml Current Medications: Meds: Current Medications Acetaminophen (Tylenol) 650 mg PRN Q6HRS PRN PO PAIN / TEMP Last administered on 06/25/17 20:31; Start 06/23/17 at 22:30 Multi-Ingredient Ointment (Analgesic [place]) 1 brittney PRN QID PRN TP MUSCLE PAIN; Start 06/23/17 at 22:30 Al Hydroxide/Mg Hydroxide (Mylanta Plus Xs) 15 ml PRN AFTMEALHC PRN PO DYSPEPSIA; Start 06/23/17 at 22:30 Magnesium Hydroxide (Milk Of Magnesia) 2,400 mg PRN QHS PRN PO CONSTIPATION; Start 06/23/17 at 22:30 Citalopram Hydrobromide (CeleXA) 10 mg DAILY PO Last administered on 07/10/17 08:47; Start 06/24/17 at 09:00 Clonazepam (KlonoPIN) 0.5 mg PRN BID PRN PO ANXIETY / AGITATION Last administered on 06/29/17 15:38; Start 06/23/17 at 22:30 Donepezil HCl (Aricept) 10 mg QHS PO Last administered on 07/10/17 20:12; Start 06/24/17 at 21:00 Atorvastatin Calcium (Lipitor) 20 mg QHS PO Last administered on 07/10/17 20: 11; Start 06/24/17 at 21:00 Levothyroxine Sodium (Synthroid) 175 mcg DAILY07 PO Last administered on 08:07; Start 06/24/17 at 07:00; Stop 06/25/17 at 13:17; Status DC Ondansetron HCl (Zofran Odt) 4 mg PRN Q8HRS PRN PO NAUSEA/VOMITING; Start at 22:45 Tamsulosin HCl (Flomax) 0.4 mg QHS PO Last administered on 07/10/17 20:12; Start 06/24/17 at 21:00 Carbamazepine (TEGretol XR) 400 mg BID PO Last administered on 07/10/17 20:12 ; Start 06/24/17 at 09:00 Cyanocobalamin (Vitamin B-12) 1,000 mcg DAILY PO Last administered on 08:47; Start 06/24/17 at 09:00 Vitamin D (Vitamin D3) 50,000 unit WEEKLY PO Last administered on 07/09/17 08 :38; Start 07/02/17 at 09:00 Acetaminophen (Tylenol) 650 mg PRN Q6HRS PRN PO PAIN / TEMP; Start 06/24/17 at 06:45; Status UNV Magnesium Hydroxide (Milk Of Magnesia) 2,400 mg PRN DAILY PRN PO CONSTIPATION; Start 06/24/17 at 06:45; Status UNV Mirtazapine (Remeron) 7.5 mg QHS PO Last administered on 07/04/17 20:37; Start 06/24/17 at 21:00; Stop 07/05/17 at 16:28; Status DC Levothyroxine Sodium (Synthroid) 175 mcg DAILY06 PO Last administered on 05:49; Start 06/26/17 at 06:00 Propranolol HCl (Inderal) 10 mg BID92 PO Last administered on 06/26/17 16:29 ; Start 06/26/17 at 09:00; Stop 06/26/17 at 18:22; Status DC Propranolol HCl (Inderal) 10 mg TID@0900,1300,1700 PO Last administered on 13:46; Start 06/27/17 at 09:00; Stop 06/28/17 at 15:49; Status DC Trazodone HCl (Desyrel) 50 mg QHS PO Last administered on 06/28/17 20:08; Start 06/27/17 at 21:00; Stop 06/29/17 at 07:57; Status DC Propranolol HCl (Inderal) 20 mg TID@1000,1300,1700 PO ; Start 06/28/17 at 17:00 ; Status Cancel Propranolol HCl (Inderal) 20 mg TID@0900,1300,1700 PO Last administered on 07/10 18:06; Start 06/28/17 at 17:00 Trazodone HCl (Desyrel) 50 mg PRN QHS PRN PO INSOMNIA Last administered on 20:05; Start 06/29/17 at 21:00; Stop 07/10/17 at 13:07; Status DC Trazodone HCl (Desyrel) 100 mg QHS PO Last administered on 07/04/17 20:37; Start 06/29/17 at 21:00; Stop 07/05/17 at 16:28; Status DC Divalproex Sodium (Depakote Er) 500 mg QHS PO Last administered on 07/07/17 19:51; Start 07/01/17 at 21:00; Stop 07/08/17 at 19:11; Status DC Hydrocortisone (Cortaid) 1 brittney BID TP Last administered on 07/10/17 20:56; Start 07/05/17 at 21:00 Divalproex Sodium (Depakote Er) 250 mg DAILY PO ; Start 07/09/17 at 09:00; Stop 07/09/17 at 09:00; Status DC Divalproex Sodium (Depakote Er) 750 mg HS PO Last administered on 07/10/17 20: 11; Start 07/08/17 at 21:00 Trazodone HCl (Desyrel) 100 mg PRN QHS PRN PO SLEEP; Start 07/10/17 at 13:30 Trazodone HCl (Desyrel) 100 mg QHS PO Last administered on 07/10/17 20:17; Start 07/10/17 at 21:00 Active Scripts Active Reported Zofran Odt (Ondansetron) 4 Mg Tab.rapdis 4 Mg PO PRN Q8HRS PRN Milk Of Magnesia (Magnesium Hydroxide) 400 Mg/5 Ml Oral.susp 2,400 Mg PO PRN DAILY PRN Carbamazepine Er (Carbamazepine) 400 Mg Tab.er.12h 400 Mg PO BID Tylenol (Acetaminophen) 325 Mg Tablet 650 Mg PO PRN Q6HRS PRN Vitamin B-12 (Cyanocobalamin (Vitamin B-12)) 500 Mcg Tablet 1,000 Mcg PO DAILY Citalopram Hbr (Citalopram Hydrobromide) 10 Mg Tablet 10 Mg PO DAILY Levothyroxine Sodium 175 Mcg Tablet 175 Mcg PO DAILY07 Donepezil Hcl 10 Mg Tablet 10 Mg PO QHS Atorvastatin Calcium 20 Mg Tablet 20 Mg PO QHS Tamsulosin Hcl 0.4 Mg Cap.er.24h 0.4 Mg PO QHS Clonazepam 0.5 Mg Tablet 0.5 Mg PO PRN BID PRN Vitamin D2 (Ergocalciferol (Vitamin D2)) 50,000 Unit Capsule 50,000 Units PO QTU Diagnosis: Problems: (1) Dementia (2) Behavioral problem (3) Anxiety disorder (4) Bipolar affective, mixed, severe (5) Dementia, vascular, with depression (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
[2017-07-10] MEDS: traZODone 100 MG TABLET. PO PRN (21:54)
--- NOTE | 2017-07-11 02:37 | PN ---
DATE: 07/09/2017 This late entry of 07/09/2017 covers elements not covered in my initial note of 07/09/2017. SUBJECTIVE: I met with the patient in the evening of 07/09/2017. Overall, the patient is less labile, slightly is still confused, but less irritable with cares. REVIEW OF SYSTEMS: No CV, , pulmonary, eye, ENT system symptoms on review. Reliability poor. MENTAL STATUS EXAM: Oriented to himself. Insight, judgment, recent and remote memory, attention, concentration, fund of knowledge poor, consistent with his diagnosis mentioned in my initial note. PLAN: Continue current psychotropics. Depakote was increased. Follow labs level, adjust as indicated. Reviewed drug interactions, risk/benefit ratio favors no further change. MAN Maximo LOMBARDO MD DR: OMAR/kyle JOB#: [id number] / [id number]
[2017-07-11] MEDS: LEVOTHYROXINE 175 MCG TABLET PO SCH (05:59)
[2017-07-11 06:23] VITALS: BP 160/76
[2017-07-11 08:08] LABS: BASO # 0.1 x10^3/uL (0.0-0.2); BASO % 1 % (0-3); EOS # 0.3 x10^3/uL (0.0-0.7); EOS % 3 % (0-3); HEMATOCRIT 37.2 % (39.0-53.0); HEMOGLOBIN 12.5 g/dL (13.0-17.5); LYMPH # 1.6 x10^3/uL (1.0-4.8); LYMPH % 17 % (24-48); MEAN CORPUSCULAR HEMOGLOBIN 30 pg (25-35); MEAN CORPUSCULAR HGB CONC 34 g/dL (31-37); MEAN CORPUSCULAR VOLUME 89 fL (79-100); MONO # 1.2 x10^3/uL (0.0-1.1); MONO % 13 % (0-9); NEUT # 6.3 x10^3uL (1.8-7.7); NEUT % 67 % (31-73); PLATELET COUNT 247 x10^3/uL (140-400); RED BLOOD COUNT 4.18 x10^6/uL (4.30-5.70); RED CELL DISTRIBUTION WIDTH 13.5 % (11.5-14.5); WHITE BLOOD COUNT 9.4 x10^3/uL (4.0-11.0)
[2017-07-11 08:15] LABS: ALBUMIN 2.8 g/dL (3.4-5.0); ALBUMIN/GLOBULIN RATIO 0.6 (1.0-1.7); ALK PHOS 85 U/L (46-116); ALT (SGPT) 30 U/L (16-63); ANION GAP 7 (6-14); AST (SGOT) 30 U/L (15-37); BLOOD UREA NITROGEN 12 mg/dL (8-26); BUN/CREATININE RATIO 15 (6-20); CALCIUM 8.7 mg/dL (8.5-10.1); CARBON DIOXIDE 30 mmol/L (21-32); CHLORIDE 106 mmol/L (98-107); CREATININE 0.8 mg/dL (0.7-1.3); GFR 96.1; GLUCOSE 107 mg/dL (70-99); POTASSIUM 3.9 mmol/L (3.5-5.1); SODIUM 143 mmol/L (136-145); TOTAL BILIRUBIN 0.2 mg/dL (0.2-1.0); TOTAL PROTEIN 7.2 g/dL (6.4-8.2)
[2017-07-11 08:24] LABS: VAL ACID 25 mcg/mL (50-100)
[2017-07-11] MEDS: CITALOPRAM 10 MG TABLET. PO SCH (09:35)
[2017-07-11] MEDS: CYANOCOBALAMIN (VITAMIN B-12) 1,000 MCG TABLET. PO SCH (09:35)
[2017-07-11] MEDS: PROPRANOLOL 10 MG TABLET. PO SCH ×3 (09:35→16:15)
[2017-07-11] MEDS: carBAMazepine XR 200 MG TAB.ER.12H PO SCH ×2 (09:35→19:50)
[2017-07-11] MEDS: HYDROCORTISONE 1% TOPICAL OINTMENT 30GM TUBE. TP SCH ×2 (09:36→20:00)
[2017-07-11 16:29] VITALS: BP 109/64
[2017-07-11] MEDS: DONEPEZIL HCL 10 MG TABLET PO SCH (19:50)
[2017-07-11] MEDS: TAMSULOSIN 0.4 MG CAP.ER.24H. PO SCH (19:50)
[2017-07-11] MEDS: ATORVASTATIN CALCIUM 20 MG TABLET PO SCH (19:50)
[2017-07-11] MEDS: traZODone 100 MG TABLET. PO SCH (19:51)
[2017-07-11] MEDS: DIVALPROEX ER 500 MG TAB.ER.24H PO SCH (19:54)
--- NOTE | 2017-07-11 20:56 | PDOC ---
Exam Gunnar Demential Exam: Gunnar Note: Please also refer to the separate dictated note~for this date of service dictated separately.~Patient seen individually. Discussed the patient with Nursing staff reviewed the chart.~Reviewed interim history and current functioning. Reviewed vital signs,~Labs/ Radiology~and current medications noted below. Continue current treatment with the changes noted in the dictated addendum note Assessment: Vital Signs: Vital Signs Date Time Temp Pulse Resp B/P (MAP) Pulse Ox O2 Delivery O2 Flow Rate FiO2 07/11/17 16:29 99.8 68 16 109/64 (79) 94 Room Air I&O Intake and Output 07/12/17 07:00 Intake Total 300 ml Balance 300 ml Intake Oral 300 ml Labs: Laboratory Tests Test 07/11/17 07:44 White Blood Count 9.4 x10^3/uL (4.0-11.0) Red Blood Count 4.18 x10^6/uL (4.30-5.70) L Hemoglobin 12.5 g/dL (13.0-17.5) L Hematocrit 37.2 % (39.0-53.0) L Mean Corpuscular Volume 89 fL (79-100) Mean Corpuscular Hemoglobin 30 pg (25-35) Mean Corpuscular Hemoglobin Concent 34 g/dL (31-37) Red Cell Distribution Width 13.5 % (11.5-14.5) Platelet Count 247 x10^3/uL (140-400) Neutrophils (%) (Auto) 67 % (31-73) Lymphocytes (%) (Auto) 17 % (24-48) L Monocytes (%) (Auto) 13 % (0-9) H Eosinophils (%) (Auto) 3 % (0-3) Basophils (%) (Auto) 1 % (0-3) Neutrophils # (Auto) 6.3 x10^3uL (1.8-7.7) Lymphocytes # (Auto) 1.6 x10^3/uL (1.0-4.8) Monocytes # (Auto) 1.2 x10^3/uL (0.0-1.1) H Eosinophils # (Auto) 0.3 x10^3/uL (0.0-0.7) Basophils # (Auto) 0.1 x10^3/uL (0.0-0.2) Sodium Level 143 mmol/L (136-145) Potassium Level 3.9 mmol/L (3.5-5.1) Chloride Level 106 mmol/L (98-107) Carbon Dioxide Level 30 mmol/L (21-32) Anion Gap 7 (6-14) Blood Urea Nitrogen 12 mg/dL (8-26) Creatinine 0.8 mg/dL (0.7-1.3) Estimated GFR (Cockcroft-Gault) 96.1 BUN/Creatinine Ratio 15 (6-20) Glucose Level 107 mg/dL (70-99) H Calcium Level 8.7 mg/dL (8.5-10.1) Total Bilirubin 0.2 mg/dL (0.2-1.0) Aspartate Amino Transferase (AST) 30 U/L (15-37) Alanine Aminotransferase (ALT) 30 U/L (16-63) Alkaline Phosphatase 85 U/L (46-116) Total Protein 7.2 g/dL (6.4-8.2) Albumin 2.8 g/dL (3.4-5.0) L Albumin/Globulin Ratio 0.6 (1.0-1.7) L Valproic Acid Level 25 mcg/mL (50-100) L Valproic Acid Last Dose Date 07/10/2017 Valproic Acid Last Dose Time 2100 Current Medications: Meds: Current Medications Acetaminophen (Tylenol) 650 mg PRN Q6HRS PRN PO PAIN / TEMP Last administered on 06/25/17 20:31; Start 06/23/17 at 22:30 Multi-Ingredient Ointment (Analgesic [place]) 1 brittney PRN QID PRN TP MUSCLE PAIN; Start 06/23/17 at 22:30 Al Hydroxide/Mg Hydroxide (Mylanta Plus Xs) 15 ml PRN AFTMEALHC PRN PO DYSPEPSIA; Start 06/23/17 at 22:30 Magnesium Hydroxide (Milk Of Magnesia) 2,400 mg PRN QHS PRN PO CONSTIPATION; Start 06/23/17 at 22:30 Citalopram Hydrobromide (CeleXA) 10 mg DAILY PO Last administered on 07/11/17 09:35; Start 06/24/17 at 09:00 Clonazepam (KlonoPIN) 0.5 mg PRN BID PRN PO ANXIETY / AGITATION Last administered on 06/29/17 15:38; Start 06/23/17 at 22:30 Donepezil HCl (Aricept) 10 mg QHS PO Last administered on 07/11/17 19:50; Start 06/24/17 at 21:00 Atorvastatin Calcium (Lipitor) 20 mg QHS PO Last administered on 07/11/17 19: 50; Start 06/24/17 at 21:00 Levothyroxine Sodium (Synthroid) 175 mcg DAILY07 PO Last administered on 08:07; Start 06/24/17 at 07:00; Stop 06/25/17 at 13:17; Status DC Ondansetron HCl (Zofran Odt) 4 mg PRN Q8HRS PRN PO NAUSEA/VOMITING; Start at 22:45 Tamsulosin HCl (Flomax) 0.4 mg QHS PO Last administered on 07/11/17 19:50; Start 06/24/17 at 21:00 Carbamazepine (TEGretol XR) 400 mg BID PO Last administered on 07/11/17 19:50 ; Start 06/24/17 at 09:00 Cyanocobalamin (Vitamin B-12) 1,000 mcg DAILY PO Last administered on 09:35; Start 06/24/17 at 09:00 Vitamin D (Vitamin D3) 50,000 unit WEEKLY PO Last administered on 07/09/17 08 :38; Start 07/02/17 at 09:00 Acetaminophen (Tylenol) 650 mg PRN Q6HRS PRN PO PAIN / TEMP; Start 06/24/17 at 06:45; Status UNV Magnesium Hydroxide (Milk Of Magnesia) 2,400 mg PRN DAILY PRN PO CONSTIPATION; Start 06/24/17 at 06:45; Status UNV Mirtazapine (Remeron) 7.5 mg QHS PO Last administered on 07/04/17 20:37; Start 06/24/17 at 21:00; Stop 07/05/17 at 16:28; Status DC Levothyroxine Sodium (Synthroid) 175 mcg DAILY06 PO Last administered on 05:59; Start 06/26/17 at 06:00 Propranolol HCl (Inderal) 10 mg BID92 PO Last administered on 06/26/17 16:29 ; Start 06/26/17 at 09:00; Stop 06/26/17 at 18:22; Status DC Propranolol HCl (Inderal) 10 mg TID@0900,1300,1700 PO Last administered on 13:46; Start 06/27/17 at 09:00; Stop 06/28/17 at 15:49; Status DC Trazodone HCl (Desyrel) 50 mg QHS PO Last administered on 06/28/17 20:08; Start 06/27/17 at 21:00; Stop 06/29/17 at 07:57; Status DC Propranolol HCl (Inderal) 20 mg TID@1000,1300,1700 PO ; Start 06/28/17 at 17:00 ; Status Cancel Propranolol HCl (Inderal) 20 mg TID@0900,1300,1700 PO Last administered on 07/11 09:35; Start 06/28/17 at 17:00 Trazodone HCl (Desyrel) 50 mg PRN QHS PRN PO INSOMNIA Last administered on 20:05; Start 06/29/17 at 21:00; Stop 07/10/17 at 13:07; Status DC Trazodone HCl (Desyrel) 100 mg QHS PO Last administered on 07/04/17 20:37; Start 06/29/17 at 21:00; Stop 07/05/17 at 16:28; Status DC Divalproex Sodium (Depakote Er) 500 mg QHS PO Last administered on 07/07/17 19:51; Start 07/01/17 at 21:00; Stop 07/08/17 at 19:11; Status DC Hydrocortisone (Cortaid) 1 brittney BID TP Last administered on 07/11/17 20:00; Start 07/05/17 at 21:00 Divalproex Sodium (Depakote Er) 250 mg DAILY PO ; Start 07/09/17 at 09:00; Stop 07/09/17 at 09:00; Status DC Divalproex Sodium (Depakote Er) 750 mg HS PO Last administered on 07/10/17 20: 11; Start 07/08/17 at 21:00; Stop 07/11/17 at 18:50; Status DC Trazodone HCl (Desyrel) 100 mg PRN QHS PRN PO SLEEP Last administered on 21:54; Start 07/10/17 at 13:30 Trazodone HCl (Desyrel) 100 mg QHS PO Last administered on 07/11/17 19:51; Start 07/10/17 at 21:00 Divalproex Sodium (Depakote Er) 1,000 mg QHS PO Last administered on 07/11/17 19:54; Start 07/11/17 at 21:00 Active Scripts Active Reported Zofran Odt (Ondansetron) 4 Mg Tab.rapdis 4 Mg PO PRN Q8HRS PRN Milk Of Magnesia (Magnesium Hydroxide) 400 Mg/5 Ml Oral.susp 2,400 Mg PO PRN DAILY PRN Carbamazepine Er (Carbamazepine) 400 Mg Tab.er.12h 400 Mg PO BID Tylenol (Acetaminophen) 325 Mg Tablet 650 Mg PO PRN Q6HRS PRN Vitamin B-12 (Cyanocobalamin (Vitamin B-12)) 500 Mcg Tablet 1,000 Mcg PO DAILY Citalopram Hbr (Citalopram Hydrobromide) 10 Mg Tablet 10 Mg PO DAILY Levothyroxine Sodium 175 Mcg Tablet 175 Mcg PO DAILY07 Donepezil Hcl 10 Mg Tablet 10 Mg PO QHS Atorvastatin Calcium 20 Mg Tablet 20 Mg PO QHS Tamsulosin Hcl 0.4 Mg Cap.er.24h 0.4 Mg PO QHS Clonazepam 0.5 Mg Tablet 0.5 Mg PO PRN BID PRN Vitamin D2 (Ergocalciferol (Vitamin D2)) 50,000 Unit Capsule 50,000 Units PO QTU Diagnosis: Problems: (1) Dementia (2) Behavioral problem (3) Anxiety disorder (4) Bipolar affective, mixed, severe (5) Dementia, vascular, with depression (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
--- NOTE | 2017-07-11 23:38 | PN ---
DATE: 07/10/2017 PSYCHIATRIC PROGRESS NOTE This is a late entry for 07/10/2017, covers elements not covered in my initial note of 07/10/2017. SUBJECTIVE: The patient was staffed at a treatment team meeting the afternoon of 07/10/2017. I met with him the evening of 07/10/2017. Overall, the patient is less labile, less irritable. Nursing ____ reviewed his diagnosis, history, prognosis at length in treatment team meeting. Appetite 80%, slept 5-3/4 hours on average, but 2-1/4 hours the night before. REVIEW OF SYSTEMS: No CV, , pulmonary, eye, ENT system symptoms on review. Reliability poor. MENTAL STATUS EXAM: Oriented to himself. Insight, judgment, recent and remote memory, attention, concentration, fund of knowledge poor, consistent with his diagnosis. The yelling behavior is noted 2 days ago that seemed to have subsided recently. LABORATORY DATA: Reviewed. IMPRESSION: Unchanged from initial note. PLAN: Continue current psychotropics mentioned in my initial note. Increase trazodone to 100 mg at bedtime, scheduled, may repeat x 1 for insomnia. Reviewed drug interactions. Risk/benefit ratio favors no further change. CHERIE LOMBARDO MD DR: OMAR/kyle JOB#: [id number] / [id number]
[2017-07-12] MEDS: LEVOTHYROXINE 175 MCG TABLET PO SCH (05:19)
[2017-07-12 06:19] VITALS: BP 146/88
[2017-07-12] MEDS: PROPRANOLOL 10 MG TABLET. PO SCH ×3 (08:12→17:00)
[2017-07-12] MEDS: carBAMazepine XR 200 MG TAB.ER.12H PO SCH ×2 (08:12→19:36)
[2017-07-12] MEDS: CITALOPRAM 10 MG TABLET. PO SCH (08:12)
[2017-07-12] MEDS: CYANOCOBALAMIN (VITAMIN B-12) 1,000 MCG TABLET. PO SCH (08:12)
[2017-07-12] MEDS: HYDROCORTISONE 1% TOPICAL OINTMENT 30GM TUBE. TP SCH ×2 (08:13→19:37)
[2017-07-12 16:20] VITALS: BP 121/74
[2017-07-12] MEDS: ATORVASTATIN CALCIUM 20 MG TABLET PO SCH (19:36)
[2017-07-12] MEDS: TAMSULOSIN 0.4 MG CAP.ER.24H. PO SCH (19:36)
[2017-07-12] MEDS: DIVALPROEX ER 500 MG TAB.ER.24H PO SCH (19:36)
[2017-07-12] MEDS: traZODone 100 MG TABLET. PO SCH (19:36)
[2017-07-12] MEDS: DONEPEZIL HCL 10 MG TABLET PO SCH (19:36)
--- NOTE | 2017-07-12 21:03 | PDOC ---
Exam Gunnar Demential Exam: Gunnar Note: Please also refer to the separate dictated note~for this date of service dictated separately.~Patient seen individually. Discussed the patient with Nursing staff reviewed the chart.~Reviewed interim history and current functioning. Reviewed vital signs,~Labs/ Radiology~and current medications noted below. Continue current treatment with the changes noted in the dictated addendum note Assessment: Vital Signs: Vital Signs Date Time Temp Pulse Resp B/P (MAP) Pulse Ox O2 Delivery O2 Flow Rate FiO2 07/12/17 17:00 121 74/76 07/12/17 16:20 97.4 20 98 07/11/17 16:29 Room Air I&O Intake and Output 07/13/17 07:00 Intake Total 1080 ml Balance 1080 ml Intake Oral 1080 ml Current Medications: Meds: Current Medications Acetaminophen (Tylenol) 650 mg PRN Q6HRS PRN PO PAIN / TEMP Last administered on 06/25/17 20:31; Start 06/23/17 at 22:30 Multi-Ingredient Ointment (Analgesic [place]) 1 brittney PRN QID PRN TP MUSCLE PAIN; Start 06/23/17 at 22:30 Al Hydroxide/Mg Hydroxide (Mylanta Plus Xs) 15 ml PRN AFTMEALHC PRN PO DYSPEPSIA; Start 06/23/17 at 22:30 Magnesium Hydroxide (Milk Of Magnesia) 2,400 mg PRN QHS PRN PO CONSTIPATION; Start 06/23/17 at 22:30 Citalopram Hydrobromide (CeleXA) 10 mg DAILY PO Last administered on 07/12/17 08:12; Start 06/24/17 at 09:00 Clonazepam (KlonoPIN) 0.5 mg PRN BID PRN PO ANXIETY / AGITATION Last administered on 06/29/17 15:38; Start 06/23/17 at 22:30 Donepezil HCl (Aricept) 10 mg QHS PO Last administered on 07/12/17 19:36; Start 06/24/17 at 21:00 Atorvastatin Calcium (Lipitor) 20 mg QHS PO Last administered on 07/12/17 19: 36; Start 06/24/17 at 21:00 Levothyroxine Sodium (Synthroid) 175 mcg DAILY07 PO Last administered on 08:07; Start 06/24/17 at 07:00; Stop 06/25/17 at 13:17; Status DC Ondansetron HCl (Zofran Odt) 4 mg PRN Q8HRS PRN PO NAUSEA/VOMITING; Start at 22:45 Tamsulosin HCl (Flomax) 0.4 mg QHS PO Last administered on 07/12/17 19:36; Start 06/24/17 at 21:00 Carbamazepine (TEGretol XR) 400 mg BID PO Last administered on 07/12/17 19:36 ; Start 06/24/17 at 09:00 Cyanocobalamin (Vitamin B-12) 1,000 mcg DAILY PO Last administered on 08:12; Start 06/24/17 at 09:00 Vitamin D (Vitamin D3) 50,000 unit WEEKLY PO Last administered on 07/09/17 08 :38; Start 07/02/17 at 09:00 Acetaminophen (Tylenol) 650 mg PRN Q6HRS PRN PO PAIN / TEMP; Start 06/24/17 at 06:45; Status UNV Magnesium Hydroxide (Milk Of Magnesia) 2,400 mg PRN DAILY PRN PO CONSTIPATION; Start 06/24/17 at 06:45; Status UNV Mirtazapine (Remeron) 7.5 mg QHS PO Last administered on 07/04/17 20:37; Start 06/24/17 at 21:00; Stop 07/05/17 at 16:28; Status DC Levothyroxine Sodium (Synthroid) 175 mcg DAILY06 PO Last administered on 05:19; Start 06/26/17 at 06:00 Propranolol HCl (Inderal) 10 mg BID92 PO Last administered on 06/26/17 16:29 ; Start 06/26/17 at 09:00; Stop 06/26/17 at 18:22; Status DC Propranolol HCl (Inderal) 10 mg TID@0900,1300,1700 PO Last administered on 13:46; Start 06/27/17 at 09:00; Stop 06/28/17 at 15:49; Status DC Trazodone HCl (Desyrel) 50 mg QHS PO Last administered on 06/28/17 20:08; Start 06/27/17 at 21:00; Stop 06/29/17 at 07:57; Status DC Propranolol HCl (Inderal) 20 mg TID@1000,1300,1700 PO ; Start 06/28/17 at 17:00 ; Status Cancel Propranolol HCl (Inderal) 20 mg TID@0900,1300,1700 PO Last administered on 07/12 17:00; Start 06/28/17 at 17:00 Trazodone HCl (Desyrel) 50 mg PRN QHS PRN PO INSOMNIA Last administered on 20:05; Start 06/29/17 at 21:00; Stop 07/10/17 at 13:07; Status DC Trazodone HCl (Desyrel) 100 mg QHS PO Last administered on 07/04/17 20:37; Start 06/29/17 at 21:00; Stop 07/05/17 at 16:28; Status DC Divalproex Sodium (Depakote Er) 500 mg QHS PO Last administered on 07/07/17 19:51; Start 07/01/17 at 21:00; Stop 07/08/17 at 19:11; Status DC Hydrocortisone (Cortaid) 1 brittney BID TP Last administered on 07/12/17 19:37; Start 07/05/17 at 21:00 Divalproex Sodium (Depakote Er) 250 mg DAILY PO ; Start 07/09/17 at 09:00; Stop 07/09/17 at 09:00; Status DC Divalproex Sodium (Depakote Er) 750 mg HS PO Last administered on 07/10/17 20: 11; Start 07/08/17 at 21:00; Stop 07/11/17 at 18:50; Status DC Trazodone HCl (Desyrel) 100 mg PRN QHS PRN PO SLEEP Last administered on 21:54; Start 07/10/17 at 13:30 Trazodone HCl (Desyrel) 100 mg QHS PO Last administered on 07/12/17 19:36; Start 07/10/17 at 21:00 Divalproex Sodium (Depakote Er) 1,000 mg QHS PO Last administered on 07/12/17 19:36; Start 11/2/17 at 21:00 Active Scripts Active Reported Zofran Odt (Ondansetron) 4 Mg Tab.rapdis 4 Mg PO PRN Q8HRS PRN Milk Of Magnesia (Magnesium Hydroxide) 400 Mg/5 Ml Oral.susp 2,400 Mg PO PRN DAILY PRN Carbamazepine Er (Carbamazepine) 400 Mg Tab.er.12h 400 Mg PO BID Tylenol (Acetaminophen) 325 Mg Tablet 650 Mg PO PRN Q6HRS PRN Vitamin B-12 (Cyanocobalamin (Vitamin B-12)) 500 Mcg Tablet 1,000 Mcg PO DAILY Citalopram Hbr (Citalopram Hydrobromide) 10 Mg Tablet 10 Mg PO DAILY Levothyroxine Sodium 175 Mcg Tablet 175 Mcg PO DAILY07 Donepezil Hcl 10 Mg Tablet 10 Mg PO QHS Atorvastatin Calcium 20 Mg Tablet 20 Mg PO QHS Tamsulosin Hcl 0.4 Mg Cap.er.24h 0.4 Mg PO QHS Clonazepam 0.5 Mg Tablet 0.5 Mg PO PRN BID PRN Vitamin D2 (Ergocalciferol (Vitamin D2)) 50,000 Unit Capsule 50,000 Units PO QTU Diagnosis: Problems: (1) Dementia (2) Behavioral problem (3) Anxiety disorder (4) Bipolar affective, mixed, severe (5) Dementia, vascular, with depression (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
[2017-07-13] MEDS: LEVOTHYROXINE 175 MCG TABLET PO SCH (05:54)
[2017-07-13 06:08] VITALS: BP 176/63
[2017-07-13] MEDS: CYANOCOBALAMIN (VITAMIN B-12) 1,000 MCG TABLET. PO SCH (06:11)
[2017-07-13] MEDS: carBAMazepine XR 200 MG TAB.ER.12H PO SCH ×2 (06:11→21:58)
[2017-07-13] MEDS: PROPRANOLOL 10 MG TABLET. PO SCH ×3 (06:11→19:22)
[2017-07-13] MEDS: CITALOPRAM 10 MG TABLET. PO SCH (06:12)
[2017-07-13] MEDS: HYDROCORTISONE 1% TOPICAL OINTMENT 30GM TUBE. TP SCH ×2 (06:12→21:58)
--- NOTE | 2017-07-13 09:46 | PN ---
DATE: 07/11/2017 This is late entry, date of service 07/11 covers elements not covered in my initial note of 07/11. SUBJECTIVE: I met with the patient evening of 07/11. The patient was agitated with physical therapy staff, threw his walker at one point, but redirected. REVIEW OF SYSTEMS: No CV, , pulmonary, eye, ENT system symptoms on review. Reliability poor. MENTAL STATUS EXAM: Oriented to himself. Insight, judgment, recent and remote memory, attention, concentration, fund of knowledge poor, consistent with his diagnosis mentioned in my initial note. PLAN: Valproic acid level subtherapeutic at 25, on Depakote ER 750 mg at bedtime. Increase Depakote ER to 1000 mg p.o. at bedtime. Check CBC, CMP, valproic acid level in 3 days. Continue rest of psychotropics unchanged review drug interactions. Risk/benefit ratio favors no further change. CHERIE LOMBARDO MD DR: OMAR/kyle JOB#: [id number] / [id number]
[2017-07-13 16:19] VITALS: BP 126/75
[2017-07-13] MEDS: TAMSULOSIN 0.4 MG CAP.ER.24H. PO SCH (21:57)
[2017-07-13] MEDS: DONEPEZIL HCL 10 MG TABLET PO SCH (21:57)
[2017-07-13] MEDS: traZODone 100 MG TABLET. PO SCH (21:57)
[2017-07-13] MEDS: DIVALPROEX ER 500 MG TAB.ER.24H PO SCH (21:57)
[2017-07-13] MEDS: ATORVASTATIN CALCIUM 20 MG TABLET PO SCH (21:58)
--- NOTE | 2017-07-13 22:39 | PN ---
DATE: 07/12/2017 This late entry 07/12/2017 covers elements not covered in my initial note of 07/12/2017. SUBJECTIVE: I met with the patient evening of 07/12/2017. Overall, per nursing report, the patient has been pleasant, he yells when he is next to another demented patient who has been yelling constantly on the unit and this agitates him. He is compliant with his medications, labs to be checked on the for his Depakote. REVIEW OF SYSTEMS: Ambulation impaired, in a wheelchair. No CV, , pulmonary, eye, ENT system symptoms on review. MENTAL STATUS EXAM: Oriented to himself. Insight, judgment, recent and remote memory, attention, concentration, fund of knowledge poor, consistent with his diagnosis mentioned in my initial note. PLAN: Continue current psychotropics mentioned in my initial note. Reviewed drug interactions, risk/benefit ratio favors no further change. CHERIE LOMBARDO MD DR: OMAR/kyle JOB#: [id number] / [id number]
--- NOTE | 2017-07-14 | PDOC ---
Exam Gunnar Demential Exam: Gunnar Note: Please also refer to the separate dictated note~for this date of service dictated separately.~Patient seen individually. Discussed the patient with Nursing staff reviewed the chart.~Reviewed interim history and current functioning. Reviewed vital signs,~Labs/ Radiology~and current medications noted below. Continue current treatment with the changes noted in the dictated addendum note Assessment: Vital Signs: Vital Signs Date Time Temp Pulse Resp B/P (MAP) Pulse Ox O2 Delivery O2 Flow Rate FiO2 07/13/17 19:22 69 126/75 07/13/17 16:19 97.8 16 97 07/11/17 16:29 Room Air Current Medications: Meds: Current Medications Acetaminophen (Tylenol) 650 mg PRN Q6HRS PRN PO PAIN / TEMP Last administered on 06/25/17 20:31; Start 06/23/17 at 22:30 Multi-Ingredient Ointment (Analgesic [place]) 1 brittney PRN QID PRN TP MUSCLE PAIN; Start 06/23/17 at 22:30 Al Hydroxide/Mg Hydroxide (Mylanta Plus Xs) 15 ml PRN AFTMEALHC PRN PO DYSPEPSIA; Start 06/23/17 at 22:30 Magnesium Hydroxide (Milk Of Magnesia) 2,400 mg PRN QHS PRN PO CONSTIPATION; Start 06/23/17 at 22:30 Citalopram Hydrobromide (CeleXA) 10 mg DAILY PO Last administered on 07/13/17 06:12; Start 06/24/17 at 09:00 Clonazepam (KlonoPIN) 0.5 mg PRN BID PRN PO ANXIETY / AGITATION Last administered on 06/29/17 15:38; Start 06/23/17 at 22:30 Donepezil HCl (Aricept) 10 mg QHS PO Last administered on 07/13/17 21:57; Start 06/24/17 at 21:00 Atorvastatin Calcium (Lipitor) 20 mg QHS PO Last administered on 07/13/17 21: 58; Start 06/24/17 at 21:00 Levothyroxine Sodium (Synthroid) 175 mcg DAILY07 PO Last administered on 08:07; Start 06/24/17 at 07:00; Stop 06/25/17 at 13:17; Status DC Ondansetron HCl (Zofran Odt) 4 mg PRN Q8HRS PRN PO NAUSEA/VOMITING; Start at 22:45 Tamsulosin HCl (Flomax) 0.4 mg QHS PO Last administered on 07/13/17 21:57; Start 06/24/17 at 21:00 Carbamazepine (TEGretol XR) 400 mg BID PO Last administered on 07/13/17 21:58 ; Start 06/24/17 at 09:00 Cyanocobalamin (Vitamin B-12) 1,000 mcg DAILY PO Last administered on 06:11; Start 06/24/17 at 09:00 Vitamin D (Vitamin D3) 50,000 unit WEEKLY PO Last administered on 07/09/17 08 :38; Start 07/02/17 at 09:00 Acetaminophen (Tylenol) 650 mg PRN Q6HRS PRN PO PAIN / TEMP; Start 06/24/17 at 06:45; Status UNV Magnesium Hydroxide (Milk Of Magnesia) 2,400 mg PRN DAILY PRN PO CONSTIPATION; Start 06/24/17 at 06:45; Status UNV Mirtazapine (Remeron) 7.5 mg QHS PO Last administered on 07/04/17 20:37; Start 06/24/17 at 21:00; Stop 07/05/17 at 16:28; Status DC Levothyroxine Sodium (Synthroid) 175 mcg DAILY06 PO Last administered on 05:54; Start 06/26/17 at 06:00 Propranolol HCl (Inderal) 10 mg BID92 PO Last administered on 06/26/17 16:29 ; Start 06/26/17 at 09:00; Stop 06/26/17 at 18:22; Status DC Propranolol HCl (Inderal) 10 mg TID@0900,1300,1700 PO Last administered on 13:46; Start 06/27/17 at 09:00; Stop 06/28/17 at 15:49; Status DC Trazodone HCl (Desyrel) 50 mg QHS PO Last administered on 06/28/17 20:08; Start 06/27/17 at 21:00; Stop 06/29/17 at 07:57; Status DC Propranolol HCl (Inderal) 20 mg TID@1000,1300,1700 PO ; Start 06/28/17 at 17:00 ; Status Cancel Propranolol HCl (Inderal) 20 mg TID@0900,1300,1700 PO Last administered on 07/13 19:22; Start 06/28/17 at 17:00 Trazodone HCl (Desyrel) 50 mg PRN QHS PRN PO INSOMNIA Last administered on 20:05; Start 06/29/17 at 21:00; Stop 07/10/17 at 13:07; Status DC Trazodone HCl (Desyrel) 100 mg QHS PO Last administered on 07/04/17 20:37; Start 06/29/17 at 21:00; Stop 07/05/17 at 16:28; Status DC Divalproex Sodium (Depakote Er) 500 mg QHS PO Last administered on 07/07/17 19:51; Start 07/01/17 at 21:00; Stop 07/08/17 at 19:11; Status DC Hydrocortisone (Cortaid) 1 brittney BID TP Last administered on 07/13/17 21:58; Start 07/05/17 at 21:00 Divalproex Sodium (Depakote Er) 250 mg DAILY PO ; Start 07/09/17 at 09:00; Stop 07/09/17 at 09:00; Status DC Divalproex Sodium (Depakote Er) 750 mg HS PO Last administered on 07/10/17 20: 11; Start 07/08/17 at 21:00; Stop 07/11/17 at 18:50; Status DC Trazodone HCl (Desyrel) 100 mg PRN QHS PRN PO SLEEP Last administered on 21:54; Start 07/10/17 at 13:30 Trazodone HCl (Desyrel) 100 mg QHS PO Last administered on 07/13/17 21:57; Start 07/10/17 at 21:00 Divalproex Sodium (Depakote Er) 1,000 mg QHS PO Last administered on 07/13/17 21:57; Start 07/11/17 at 21:00 Active Scripts Active Reported Zofran Odt (Ondansetron) 4 Mg Tab.rapdis 4 Mg PO PRN Q8HRS PRN Milk Of Magnesia (Magnesium Hydroxide) 400 Mg/5 Ml Oral.susp 2,400 Mg PO PRN DAILY PRN Carbamazepine Er (Carbamazepine) 400 Mg Tab.er.12h 400 Mg PO BID Tylenol (Acetaminophen) 325 Mg Tablet 650 Mg PO PRN Q6HRS PRN Vitamin B-12 (Cyanocobalamin (Vitamin B-12)) 500 Mcg Tablet 1,000 Mcg PO DAILY Citalopram Hbr (Citalopram Hydrobromide) 10 Mg Tablet 10 Mg PO DAILY Levothyroxine Sodium 175 Mcg Tablet 175 Mcg PO DAILY07 Donepezil Hcl 10 Mg Tablet 10 Mg PO QHS Atorvastatin Calcium 20 Mg Tablet 20 Mg PO QHS Tamsulosin Hcl 0.4 Mg Cap.er.24h 0.4 Mg PO QHS Clonazepam 0.5 Mg Tablet 0.5 Mg PO PRN BID PRN Vitamin D2 (Ergocalciferol (Vitamin D2)) 50,000 Unit Capsule 50,000 Units PO QTU Diagnosis: Problems: (1) Dementia (2) Behavioral problem (3) Anxiety disorder (4) Bipolar affective, mixed, severe (5) Dementia, vascular, with depression (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
[2017-07-14 06:22] VITALS: BP 127/74
[2017-07-14] MEDS: PROPRANOLOL 10 MG TABLET. PO SCH ×3 (06:41→18:48)
[2017-07-14] MEDS: CYANOCOBALAMIN (VITAMIN B-12) 1,000 MCG TABLET. PO SCH (06:41)
[2017-07-14] MEDS: CITALOPRAM 10 MG TABLET. PO SCH (06:41)
[2017-07-14] MEDS: LEVOTHYROXINE 175 MCG TABLET PO SCH (06:41)
[2017-07-14] MEDS: carBAMazepine XR 200 MG TAB.ER.12H PO SCH ×2 (06:41→18:48)
[2017-07-14 07:28] LABS: BASO # 0.1 x10^3/uL (0.0-0.2); BASO % 1 % (0-3); EOS # 0.2 x10^3/uL (0.0-0.7); EOS % 3 % (0-3); HEMATOCRIT 39.5 % (39.0-53.0); HEMOGLOBIN 13.1 g/dL (13.0-17.5); LYMPH # 1.6 x10^3/uL (1.0-4.8); LYMPH % 23 % (24-48); MEAN CORPUSCULAR HEMOGLOBIN 30 pg (25-35); MEAN CORPUSCULAR HGB CONC 33 g/dL (31-37); MEAN CORPUSCULAR VOLUME 90 fL (79-100); MONO # 0.8 x10^3/uL (0.0-1.1); MONO % 11 % (0-9); NEUT # 4.4 x10^3uL (1.8-7.7); NEUT % 62 % (31-73); PLATELET COUNT 274 x10^3/uL (140-400); RED BLOOD COUNT 4.41 x10^6/uL (4.30-5.70); RED CELL DISTRIBUTION WIDTH 13.9 % (11.5-14.5); WHITE BLOOD COUNT 7.1 x10^3/uL (4.0-11.0)
[2017-07-14 07:45] LABS: ALBUMIN 3.1 g/dL (3.4-5.0); ALBUMIN/GLOBULIN RATIO 0.7 (1.0-1.7); ALK PHOS 83 U/L (46-116); ALT (SGPT) 26 U/L (16-63); ANION GAP 6 (6-14); AST (SGOT) 17 U/L (15-37); BLOOD UREA NITROGEN 9 mg/dL (8-26); BUN/CREATININE RATIO 11 (6-20); CALCIUM 8.7 mg/dL (8.5-10.1); CARBON DIOXIDE 31 mmol/L (21-32); CHLORIDE 104 mmol/L (98-107); CREATININE 0.8 mg/dL (0.7-1.3); GFR 96.1; GLUCOSE 101 mg/dL (70-99); POTASSIUM 4.1 mmol/L (3.5-5.1); SODIUM 141 mmol/L (136-145); TOTAL BILIRUBIN 0.3 mg/dL (0.2-1.0); TOTAL PROTEIN 7.5 g/dL (6.4-8.2)
[2017-07-14 07:47] LABS: VAL ACID 45 mcg/mL (50-100)
[2017-07-14] MEDS: HYDROCORTISONE 1% TOPICAL OINTMENT 30GM TUBE. TP SCH ×3 (08:22→20:19)
[2017-07-14 16:46] VITALS: BP 168/75
--- NOTE | 2017-07-14 17:44 | PDOC ---
Exam Gunnar Demential Exam: Gunnar Note: Please also refer to the separate dictated note~for this date of service dictated separately.~Patient seen individually. Discussed the patient with Nursing staff reviewed the chart.~Reviewed interim history and current functioning. Reviewed vital signs,~Labs/ Radiology~and current medications noted below. Continue current treatment with the changes noted in the dictated addendum note Assessment: Vital Signs: Vital Signs Date Time Temp Pulse Resp B/P (MAP) Pulse Ox O2 Delivery O2 Flow Rate FiO2 07/14/17 16:46 97.3 71 19 168/75 (106) 98 07/11/17 16:29 Room Air I&O Intake and Output 07/15/17 07:00 Intake Total 960 ml Balance 960 ml Intake Oral 960 ml # Bowel Movements 1 Labs: Laboratory Tests Test 07/14/17 07:15 White Blood Count 7.1 x10^3/uL (4.0-11.0) Red Blood Count 4.41 x10^6/uL (4.30-5.70) Hemoglobin 13.1 g/dL (13.0-17.5) Hematocrit 39.5 % (39.0-53.0) Mean Corpuscular Volume 90 fL (79-100) Mean Corpuscular Hemoglobin 30 pg (25-35) Mean Corpuscular Hemoglobin Concent 33 g/dL (31-37) Red Cell Distribution Width 13.9 % (11.5-14.5) Platelet Count 274 x10^3/uL (140-400) Neutrophils (%) (Auto) 62 % (31-73) Lymphocytes (%) (Auto) 23 % (24-48) L Monocytes (%) (Auto) 11 % (0-9) H Eosinophils (%) (Auto) 3 % (0-3) Basophils (%) (Auto) 1 % (0-3) Neutrophils # (Auto) 4.4 x10^3uL (1.8-7.7) Lymphocytes # (Auto) 1.6 x10^3/uL (1.0-4.8) Monocytes # (Auto) 0.8 x10^3/uL (0.0-1.1) Eosinophils # (Auto) 0.2 x10^3/uL (0.0-0.7) Basophils # (Auto) 0.1 x10^3/uL (0.0-0.2) Sodium Level 141 mmol/L (136-145) Potassium Level 4.1 mmol/L (3.5-5.1) Chloride Level 104 mmol/L (98-107) Carbon Dioxide Level 31 mmol/L (21-32) Anion Gap 6 (6-14) Blood Urea Nitrogen 9 mg/dL (8-26) Creatinine 0.8 mg/dL (0.7-1.3) Estimated GFR (Cockcroft-Gault) 96.1 BUN/Creatinine Ratio 11 (6-20) Glucose Level 101 mg/dL (70-99) H Calcium Level 8.7 mg/dL (8.5-10.1) Total Bilirubin 0.3 mg/dL (0.2-1.0) Aspartate Amino Transferase (AST) 17 U/L (15-37) Alanine Aminotransferase (ALT) 26 U/L (16-63) Alkaline Phosphatase 83 U/L (46-116) Total Protein 7.5 g/dL (6.4-8.2) Albumin 3.1 g/dL (3.4-5.0) L Albumin/Globulin Ratio 0.7 (1.0-1.7) L Valproic Acid Level 45 mcg/mL (50-100) L Valproic Acid Last Dose Date 07/13/17 Valproic Acid Last Dose Time 2100 Current Medications: Meds: Current Medications Acetaminophen (Tylenol) 650 mg PRN Q6HRS PRN PO PAIN / TEMP Last administered on 06/25/17t 20:31; Start 06/23/17 at 22:30 Multi-Ingredient Ointment (Analgesic [place]) 1 brittney PRN QID PRN TP MUSCLE PAIN; Start 06/23/17 at 22:30 Al Hydroxide/Mg Hydroxide (Mylanta Plus Xs) 15 ml PRN AFTMEALHC PRN PO DYSPEPSIA; Start 06/23/17 at 22:30 Magnesium Hydroxide (Milk Of Magnesia) 2,400 mg PRN QHS PRN PO CONSTIPATION; Start 06/23/17 at 22:30 Citalopram Hydrobromide (CeleXA) 10 mg DAILY PO Last administered on 07/14/17 06:41; Start 06/24/17 at 09:00 Clonazepam (KlonoPIN) 0.5 mg PRN BID PRN PO ANXIETY / AGITATION Last administered on 06/29/17 15:38; Start 06/23/17 at 22:30 Donepezil HCl (Aricept) 10 mg QHS PO Last administered on 07/13/17 21:57; Start 06/24/17 at 21:00 Atorvastatin Calcium (Lipitor) 20 mg QHS PO Last administered on 07/13/17 21: 58; Start 06/24/17 at 21:00 Levothyroxine Sodium (Synthroid) 175 mcg DAILY07 PO Last administered on 08:07; Start 06/24/17 at 07:00; Stop 06/25/17 at 13:17; Status DC Ondansetron HCl (Zofran Odt) 4 mg PRN Q8HRS PRN PO NAUSEA/VOMITING; Start at 22:45 Tamsulosin HCl (Flomax) 0.4 mg QHS PO Last administered on 07/13/17 21:57; Start 06/24/17 at 21:00 Carbamazepine (TEGretol XR) 400 mg BID PO Last administered on 07/14/17 06:41 ; Start 06/24/17 at 09:00 Cyanocobalamin (Vitamin B-12) 1,000 mcg DAILY PO Last administered on 06:41; Start 06/24/17 at 09:00 Vitamin D (Vitamin D3) 50,000 unit WEEKLY PO Last administered on 07/09/17 08 :38; Start 07/02/17 at 09:00 Acetaminophen (Tylenol) 650 mg PRN Q6HRS PRN PO PAIN / TEMP; Start 06/24/17 at 06:45; Status UNV Magnesium Hydroxide (Milk Of Magnesia) 2,400 mg PRN DAILY PRN PO CONSTIPATION; Start 06/24/17 at 06:45; Status UNV Mirtazapine (Remeron) 7.5 mg QHS PO Last administered on 07/04/17 20:37; Start 06/24/17 at 21:00; Stop 07/05/17 at 16:28; Status DC Levothyroxine Sodium (Synthroid) 175 mcg DAILY06 PO Last administered on 06:41; Start 06/26/17 at 06:00 Propranolol HCl (Inderal) 10 mg BID92 PO Last administered on 06/26/17 16:29 ; Start 06/26/17 at 09:00; Stop 06/26/17 at 18:22; Status DC Propranolol HCl (Inderal) 10 mg TID@0900,1300,1700 PO Last administered on 13:46; Start 06/27/17 at 09:00; Stop 06/28/17 at 15:49; Status DC Trazodone HCl (Desyrel) 50 mg QHS PO Last administered on 06/28/17 20:08; Start 06/27/17 at 21:00; Stop 06/29/17 at 07:57; Status DC Propranolol HCl (Inderal) 20 mg TID@1000,1300,1700 PO ; Start 06/28/17 at 17:00 ; Status Cancel Propranolol HCl (Inderal) 20 mg TID@0900,1300,1700 PO Last administered on 07/14 13:00; Start 06/28/17 at 17:00 Trazodone HCl (Desyrel) 50 mg PRN QHS PRN PO INSOMNIA Last administered on 20:05; Start 06/29/17 at 21:00; Stop 07/10/17 at 13:07; Status DC Trazodone HCl (Desyrel) 100 mg QHS PO Last administered on 07/04/17 20:37; Start 06/29/17 at 21:00; Stop 07/05/17 at 16:28; Status DC Divalproex Sodium (Depakote Er) 500 mg QHS PO Last administered on 07/07/17 19:51; Start 07/01/17 at 21:00; Stop 07/08/17 at 19:11; Status DC Hydrocortisone (Cortaid) 1 brittney BID TP Last administered on 07/14/17 08:22; Start 07/05/17 at 21:00 Divalproex Sodium (Depakote Er) 250 mg DAILY PO ; Start 07/09/17 at 09:00; Stop 07/09/17 at 09:00; Status DC Divalproex Sodium (Depakote Er) 750 mg HS PO Last administered on 07/10/17 20: 11; Start 07/08/17 at 21:00; Stop 07/11/17 at 18:50; Status DC Trazodone HCl (Desyrel) 100 mg PRN QHS PRN PO SLEEP Last administered on 21:54; Start 07/10/17 at 13:30 Trazodone HCl (Desyrel) 100 mg QHS PO Last administered on 07/13/17 21:57; Start 07/10/17 at 21:00 Divalproex Sodium (Depakote Er) 1,000 mg QHS PO Last administered on 07/13/17 21:57; Start 07/11/17 at 21:00 Active Scripts Active Reported Zofran Odt (Ondansetron) 4 Mg Tab.rapdis 4 Mg PO PRN Q8HRS PRN Milk Of Magnesia (Magnesium Hydroxide) 400 Mg/5 Ml Oral.susp 2,400 Mg PO PRN DAILY PRN Carbamazepine Er (Carbamazepine) 400 Mg Tab.er.12h 400 Mg PO BID Tylenol (Acetaminophen) 325 Mg Tablet 650 Mg PO PRN Q6HRS PRN Vitamin B-12 (Cyanocobalamin (Vitamin B-12)) 500 Mcg Tablet 1,000 Mcg PO DAILY Citalopram Hbr (Citalopram Hydrobromide) 10 Mg Tablet 10 Mg PO DAILY Levothyroxine Sodium 175 Mcg Tablet 175 Mcg PO DAILY07 Donepezil Hcl 10 Mg Tablet 10 Mg PO QHS Atorvastatin Calcium 20 Mg Tablet 20 Mg PO QHS Tamsulosin Hcl 0.4 Mg Cap.er.24h 0.4 Mg PO QHS Clonazepam 0.5 Mg Tablet 0.5 Mg PO PRN BID PRN Vitamin D2 (Ergocalciferol (Vitamin D2)) 50,000 Unit Capsule 50,000 Units PO QTU Diagnosis: Problems: (1) Impulse control disorder (2) Dementia, vascular, with delusions (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
[2017-07-14] MEDS: DONEPEZIL HCL 10 MG TABLET PO SCH (18:48)
[2017-07-14] MEDS: traZODone 100 MG TABLET. PO SCH (18:48)
[2017-07-14] MEDS: DIVALPROEX ER 500 MG TAB.ER.24H PO SCH (18:49)
[2017-07-14] MEDS: TAMSULOSIN 0.4 MG CAP.ER.24H. PO SCH (18:49)
[2017-07-14] MEDS: ATORVASTATIN CALCIUM 20 MG TABLET PO SCH (18:49)
[2017-07-14] MEDS ORDERED: DIVALPROEX ER 250 MG TAB.ER.24H. PO ONE (20:15)
[2017-07-15] MEDS: traZODone 100 MG TABLET. PO PRN (01:51)
[2017-07-15 06:29] VITALS: BP 161/99
[2017-07-15] MEDS: LEVOTHYROXINE 175 MCG TABLET PO SCH (06:32)
[2017-07-15] MEDS: HYDROCORTISONE 1% TOPICAL OINTMENT 30GM TUBE. TP SCH ×2 (09:00→20:40)
[2017-07-15] MEDS: PROPRANOLOL 10 MG TABLET. PO SCH ×3 (09:17→17:52)
[2017-07-15] MEDS: CYANOCOBALAMIN (VITAMIN B-12) 1,000 MCG TABLET. PO SCH (09:17)
[2017-07-15] MEDS: carBAMazepine XR 200 MG TAB.ER.12H PO SCH ×2 (09:17→20:40)
[2017-07-15] MEDS: CITALOPRAM 10 MG TABLET. PO SCH (09:17)
[2017-07-15 13:15] VITALS: BP 131/75
[2017-07-15 16:08] VITALS: BP 119/71
--- NOTE | 2017-07-15 20:12 | PDOC ---
Exam Gunnar Demential Exam: Gunnar Note: Please also refer to the separate dictated note~for this date of service dictated separately.~Patient seen individually. Discussed the patient with Nursing staff reviewed the chart.~Reviewed interim history and current functioning. Reviewed vital signs,~Labs/ Radiology~and current medications noted below. Continue current treatment with the changes noted in the dictated addendum note Assessment: Vital Signs: Vital Signs Date Time Temp Pulse Resp B/P (MAP) Pulse Ox O2 Delivery O2 Flow Rate FiO2 07/15/17 17:52 67 119/71 07/15/17 16:08 97.9 16 97 07/11/17 16:29 Room Air I&O Intake and Output 07/16/17 07:00 Intake Total 960 ml Balance 960 ml Intake Oral 960 ml Current Medications: Meds: Current Medications Acetaminophen (Tylenol) 650 mg PRN Q6HRS PRN PO PAIN / TEMP Last administered on 06/25/17 20:31; Start 06/23/17 at 22:30 Multi-Ingredient Ointment (Analgesic [place]) 1 brittney PRN QID PRN TP MUSCLE PAIN; Start 06/23/17 at 22:30 Al Hydroxide/Mg Hydroxide (Mylanta Plus Xs) 15 ml PRN AFTMEALHC PRN PO DYSPEPSIA; Start 06/23/17 at 22:30 Magnesium Hydroxide (Milk Of Magnesia) 2,400 mg PRN QHS PRN PO CONSTIPATION; Start 06/23/17 at 22:30 Citalopram Hydrobromide (CeleXA) 10 mg DAILY PO Last administered on 07/15/17 09:17; Start 06/24/17 at 09:00 Clonazepam (KlonoPIN) 0.5 mg PRN BID PRN PO ANXIETY / AGITATION Last administered on 06/29/17 15:38; Start 06/23/17 at 22:30 Donepezil HCl (Aricept) 10 mg QHS PO Last administered on 07/14/17 18:48; Start 06/24/17 at 21:00 Atorvastatin Calcium (Lipitor) 20 mg QHS PO Last administered on 07/14/17 18: 49; Start 06/24/17 at 21:00 Levothyroxine Sodium (Synthroid) 175 mcg DAILY07 PO Last administered on 08:07; Start 06/24/17 at 07:00; Stop 06/25/17 at 13:17; Status DC Ondansetron HCl (Zofran Odt) 4 mg PRN Q8HRS PRN PO NAUSEA/VOMITING; Start at 22:45 Tamsulosin HCl (Flomax) 0.4 mg QHS PO Last administered on 07/14/17 18:49; Start 06/24/17 at 21:00 Carbamazepine (TEGretol XR) 400 mg BID PO Last administered on 07/15/17 09:17 ; Start 06/24/17 at 09:00 Cyanocobalamin (Vitamin B-12) 1,000 mcg DAILY PO Last administered on 09:17; Start 06/24/17 at 09:00 Vitamin D (Vitamin D3) 50,000 unit WEEKLY PO Last administered on 07/09/17 08 :38; Start 07/02/17 at 09:00 Acetaminophen (Tylenol) 650 mg PRN Q6HRS PRN PO PAIN / TEMP; Start 06/24/17 at 06:45; Status UNV Magnesium Hydroxide (Milk Of Magnesia) 2,400 mg PRN DAILY PRN PO CONSTIPATION; Start 06/24/17 at 06:45; Status UNV Mirtazapine (Remeron) 7.5 mg QHS PO Last administered on 07/04/17 20:37; Start 06/24/17 at 21:00; Stop 07/05/17 at 16:28; Status DC Levothyroxine Sodium (Synthroid) 175 mcg DAILY06 PO Last administered on 06:32; Start 06/26/17 at 06:00 Propranolol HCl (Inderal) 10 mg BID92 PO Last administered on 06/26/17 16:29 ; Start 06/26/17 at 09:00; Stop 06/26/17 at 18:22; Status DC Propranolol HCl (Inderal) 10 mg TID@0900,1300,1700 PO Last administered on 13:46; Start 06/27/17 at 09:00; Stop 06/28/17 at 15:49; Status DC Trazodone HCl (Desyrel) 50 mg QHS PO Last administered on 06/28/17 20:08; Start 06/27/17 at 21:00; Stop 06/29/17 at 07:57; Status DC Propranolol HCl (Inderal) 20 mg TID@1000,1300,1700 PO ; Start 06/28/17 at 17:00 ; Status Cancel Propranolol HCl (Inderal) 20 mg TID@0900,1300,1700 PO Last administered on 07/15 17:52; Start 06/28/17 at 17:00 Trazodone HCl (Desyrel) 50 mg PRN QHS PRN PO INSOMNIA Last administered on 20:05; Start 06/29/17 at 21:00; Stop 07/10/17 at 13:07; Status DC Trazodone HCl (Desyrel) 100 mg QHS PO Last administered on 07/04/17 20:37; Start 06/29/17 at 21:00; Stop 07/05/17 at 16:28; Status DC Divalproex Sodium (Depakote Er) 500 mg QHS PO Last administered on 07/07/17 19:51; Start 07/01/17 at 21:00; Stop 07/08/17 at 19:11; Status DC Hydrocortisone (Cortaid) 1 brittney BID TP Last administered on 07/14/17 08:22; Start 07/05/17 at 21:00 Divalproex Sodium (Depakote Er) 250 mg DAILY PO ; Start 07/09/17 at 09:00; Stop 07/09/17 at 09:00; Status DC Divalproex Sodium (Depakote Er) 750 mg HS PO Last administered on 07/10/17 20: 11; Start 07/08/17 at 21:00; Stop 07/11/17 at 18:50; Status DC Trazodone HCl (Desyrel) 100 mg PRN QHS PRN PO SLEEP Last administered on 01:51; Start 07/10/17 at 13:30 Trazodone HCl (Desyrel) 100 mg QHS PO Last administered on 07/14/17 18:48; Start 07/10/17 at 21:00 Divalproex Sodium (Depakote Er) 1,000 mg QHS PO Last administered on 07/14/17 18:49; Start 07/11/17 at 21:00; Stop 07/14/17 at 19:11; Status DC Divalproex Sodium (Depakote Er) 1,250 mg QHS PO ; Start 07/15/17 at 21:00 Divalproex Sodium (Depakote Er) 250 mg 1X ONCE PO Last administered on t 20:15; Start 07/14/17 at 20:15; Stop 07/14/17 at 20:16; Status DC Active Scripts Active Reported Zofran Odt (Ondansetron) 4 Mg Tab.rapdis 4 Mg PO PRN Q8HRS PRN Milk Of Magnesia (Magnesium Hydroxide) 400 Mg/5 Ml Oral.susp 2,400 Mg PO PRN DAILY PRN Carbamazepine Er (Carbamazepine) 400 Mg Tab.er.12h 400 Mg PO BID Tylenol (Acetaminophen) 325 Mg Tablet 650 Mg PO PRN Q6HRS PRN Vitamin B-12 (Cyanocobalamin (Vitamin B-12)) 500 Mcg Tablet 1,000 Mcg PO DAILY Citalopram Hbr (Citalopram Hydrobromide) 10 Mg Tablet 10 Mg PO DAILY Levothyroxine Sodium 175 Mcg Tablet 175 Mcg PO DAILY07 Donepezil Hcl 10 Mg Tablet 10 Mg PO QHS Atorvastatin Calcium 20 Mg Tablet 20 Mg PO QHS Tamsulosin Hcl 0.4 Mg Cap.er.24h 0.4 Mg PO QHS Clonazepam 0.5 Mg Tablet 0.5 Mg PO PRN BID PRN Vitamin D2 (Ergocalciferol (Vitamin D2)) 50,000 Unit Capsule 50,000 Units PO QTU Diagnosis: Problems: (1) Dementia (2) Behavioral problem (3) Anxiety disorder (4) Bipolar affective, mixed, severe (5) Dementia, vascular, with depression (6) 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
[2017-07-15] MEDS: ATORVASTATIN CALCIUM 20 MG TABLET PO SCH (20:39)
[2017-07-15] MEDS: traZODone 100 MG TABLET. PO SCH (20:39)
[2017-07-15] MEDS: TAMSULOSIN 0.4 MG CAP.ER.24H. PO SCH (20:39)
[2017-07-15] MEDS: DONEPEZIL HCL 10 MG TABLET PO SCH (20:40)
[2017-07-15] MEDS ORDERED: DIVALPROEX ER 250 MG TAB.ER.24H. PO SCH (21:00)
[2017-07-16] MEDS ORDERED: CHOL500050 PO (00:17)
[2017-07-16] MEDS ORDERED: DIVA500T17 PO (00:21)
[2017-07-16] MEDS ORDERED: HYDR42CR2 TP (00:22)
[2017-07-16] MEDS ORDERED: MAG30ORA2 PO (00:25)
[2017-07-16] MEDS ORDERED: METH29OI TP (00:26)
[2017-07-16] MEDS ORDERED: PROP20TA PO (00:28)
[2017-07-16] MEDS ORDERED: TRAZ-90 PO (00:29)
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
[2017-07-16] MEDS: LEVOTHYROXINE 175 MCG TABLET PO SCH (05:37)
--- NOTE | 2017-07-16 06:26 | PN ---
DATE: 07/14/2017 This late entry 07/14/2017 covers elements not covered in my initial note of 07/14/2017. SUBJECTIVE: I met with the patient evening of 07/14/2017. Overall, the patient was nasty and cursing the previous evening, better during the day on 07/14/2017. REVIEW OF SYSTEMS: Ambulation impaired, in a wheelchair. No CV, , pulmonary, eye, ENT system symptoms on review. Reliability poor. MENTAL STATUS EXAM: Oriented to himself. Insight, judgment, recent and remote memory, attention, concentration, fund of knowledge poor, consistent with his diagnosis mentioned in my initial note. PLAN: Continue current psychotropics. Valproic acid level is 45, subtherapeutic on 07/14/2017, we will increase the Depakote ER from 1000 mg at bedtime to 1250 mg p.o. at bedtime. Check CBC, CMP, valproic acid level in 3 days. Maintain rest of the psychotropics, reviewed drug contractions, risk/benefit ratio favors no further change. MAN Maximo LOMBARDO MD DR: OMAR/kyle JOB#: [id number] / [id number]
[2017-07-16 06:59] VITALS: BP 111/72
[2017-07-16] MEDS: CYANOCOBALAMIN (VITAMIN B-12) 1,000 MCG TABLET. PO SCH (07:40)
[2017-07-16] MEDS: HYDROCORTISONE 1% TOPICAL OINTMENT 30GM TUBE. TP SCH (07:40)
[2017-07-16] MEDS: CITALOPRAM 10 MG TABLET. PO SCH (07:40)
[2017-07-16] MEDS: PROPRANOLOL 10 MG TABLET. PO SCH ×2 (07:40→12:34)
[2017-07-16] MEDS: carBAMazepine XR 200 MG TAB.ER.12H PO SCH (07:43)
[2017-07-16] MEDS: CHOLECALCIFEROL (VITAMIN D3) 50,000 UNIT CAPSULE PO SCH (07:43)
[2017-07-16] MEDS ORDERED: DIVA250T PO (09:27)
[2017-07-16 12:34] VITALS: BP 118/59
--- NOTE | 2017-07-16 19:17 | PDOC ---
Exam Gunnar Demential Exam: Gunnar Note: Please also refer to the separate dictated note~for this date of service dictated separately.~Patient seen individually. Discussed the patient with Nursing staff reviewed the chart.~Reviewed interim history and current functioning. Reviewed vital signs,~Labs/ Radiology~and current medications noted below. Continue current treatment with the changes noted in the dictated addendum note Assessment: Vital Signs: Vital Signs Date Time Temp Pulse Resp B/P (MAP) Pulse Ox O2 Delivery O2 Flow Rate FiO2 07/16/17 12:34 60 118/59 07/16/17 06:59 97.4 18 96 07/11/17 16:29 Room Air I&O Intake and Output 07/17/17 07:00 Intake Total 480 ml Balance 480 ml Intake Oral 480 ml Current Medications: Meds: Current Medications Acetaminophen (Tylenol) 650 mg PRN Q6HRS PRN PO PAIN / TEMP Last administered on 06/25/17 20:31; Start 06/23/17 at 22:30; Stop 07/16/17 at 14:17; Status DC Multi-Ingredient Ointment (Analgesic [place]) 1 olivia PRN QID PRN TP MUSCLE PAIN; Start 06/23/17 at 22:30; Stop 07/16/17 at 14:17; Status DC Al Hydroxide/Mg Hydroxide (Mylanta Plus Xs) 15 ml PRN AFTMEALHC PRN PO DYSPEPSIA; Start 06/23/17 at 22:30; Stop 07/16/17 at 14:17; Status DC Magnesium Hydroxide (Milk Of Magnesia) 2,400 mg PRN QHS PRN PO CONSTIPATION; Start 06/23/17 at 22:30; Stop 07/16/17 at 14:17; Status DC Citalopram Hydrobromide (CeleXA) 10 mg DAILY PO Last administered on 07/16/17 07:40; Start 06/24/17 at 09:00; Stop 07/16/17 at 14:17; Status DC Clonazepam (KlonoPIN) 0.5 mg PRN BID PRN PO ANXIETY / AGITATION Last administered on 06/29/17 15:38; Start 06/23/17 at 22:30; Stop 07/16/17 at 14: 17; Status DC Donepezil HCl (Aricept) 10 mg QHS PO Last administered on 07/15/17 20:40; Start 06/24/17 at 21:00; Stop 07/16/17 at 14:17; Status DC Atorvastatin Calcium (Lipitor) 20 mg QHS PO Last administered on 07/15/17 20: 39; Start 06/24/17 at 21:00; Stop 07/16/17 at 14:17; Status DC Levothyroxine Sodium (Synthroid) 175 mcg DAILY07 PO Last administered on 08:07; Start 06/24/17 at 07:00; Stop 06/25/17 at 13:17; Status DC Ondansetron HCl (Zofran Odt) 4 mg PRN Q8HRS PRN PO NAUSEA/VOMITING; Start at 22:45; Stop 07/16/17 at 14:17; Status DC Tamsulosin HCl (Flomax) 0.4 mg QHS PO Last administered on 07/15/17 20:39; Start 06/24/17 at 21:00; Stop 07/16/17 at 14:17; Status DC Carbamazepine (TEGretol XR) 400 mg BID PO Last administered on 07/16/17 07:43 ; Start 06/24/17 at 09:00; Stop 07/16/17 at 14:17; Status DC Cyanocobalamin (Vitamin B-12) 1,000 mcg DAILY PO Last administered on 07:40; Start 06/24/17 at 09:00; Stop 07/16/17 at 14:17; Status DC Vitamin D (Vitamin D3) 50,000 unit WEEKLY PO Last administered on 07/16/17 07: 43; Start 07/02/17 at 09:00; Stop 07/16/17 at 14:17; Status DC Acetaminophen (Tylenol) 650 mg PRN Q6HRS PRN PO PAIN / TEMP; Start 06/24/17 at 06:45; Status UNV Magnesium Hydroxide (Milk Of Magnesia) 2,400 mg PRN DAILY PRN PO CONSTIPATION; Start 06/24/17 at 06:45; Status UNV Mirtazapine (Remeron) 7.5 mg QHS PO Last administered on 07/04/17 20:37; Start 06/24/17 at 21:00; Stop 07/05/17 at 16:28; Status DC Levothyroxine Sodium (Synthroid) 175 mcg DAILY06 PO Last administered on 05:37; Start 06/26/17 at 06:00; Stop 07/16/17 at 14:17; Status DC Propranolol HCl (Inderal) 10 mg BID92 PO Last administered on 06/26/17 16:29 ; Start 06/26/17 at 09:00; Stop 06/26/17 at 18:22; Status DC Propranolol HCl (Inderal) 10 mg TID@0900,1300,1700 PO Last administered on 13:46; Start 06/27/17 at 09:00; Stop 06/28/17 at 15:49; Status DC Trazodone HCl (Desyrel) 50 mg QHS PO Last administered on 06/28/17 20:08; Start 06/27/17 at 21:00; Stop 06/29/17 at 07:57; Status DC Propranolol HCl (Inderal) 20 mg TID@1000,1300,1700 PO ; Start 06/28/17 at 17:00 ; Status Cancel Propranolol HCl (Inderal) 20 mg TID@0900,1300,1700 PO Last administered on 07/16 07:40; Start 06/28/17 at 17:00; Stop 07/16/17 at 14:17; Status DC Trazodone HCl (Desyrel) 50 mg PRN QHS PRN PO INSOMNIA Last administered on 20:05; Start 06/29/17 at 21:00; Stop 07/10/17 at 13:07; Status DC Trazodone HCl (Desyrel) 100 mg QHS PO Last administered on 07/04/17 20:37; Start 06/29/17 at 21:00; Stop 07/05/17 at 16:28; Status DC Divalproex Sodium (Depakote Er) 500 mg QHS PO Last administered on 07/07/17 19:51; Start 07/01/17 at 21:00; Stop 07/08/17 at 19:11; Status DC Hydrocortisone (Cortaid) 1 olivia BID TP Last administered on 07/16/17 07:40; Start 07/05/17 at 21:00; Stop 07/16/17 at 14:17; Status DC Divalproex Sodium (Depakote Er) 250 mg DAILY PO ; Start 07/09/17 at 09:00; Stop 07/09/17 at 09:00; Status DC Divalproex Sodium (Depakote Er) 750 mg HS PO Last administered on 07/10/17 20: 11; Start 07/08/17 at 21:00; Stop 07/11/17 at 18:50; Status DC Trazodone HCl (Desyrel) 100 mg PRN QHS PRN PO SLEEP Last administered on 01:51; Start 07/10/17 at 13:30; Stop 07/16/17 at 14:17; Status DC Trazodone HCl (Desyrel) 100 mg QHS PO Last administered on 07/15/17 20:39; Start 07/10/17 at 21:00; Stop 07/16/17 at 14:17; Status DC Divalproex Sodium (Depakote Er) 1,000 mg QHS PO Last administered on 07/14/17 18:49; Start 07/11/17 at 21:00; Stop 07/14/17 at 19:11; Status DC Divalproex Sodium (Depakote Er) 1,250 mg QHS PO Last administered on 07/15/17 20:42; Start 07/15/17 at 21:00; Stop 07/16/17 at 14:17; Status DC Divalproex Sodium (Depakote Er) 250 mg 1X ONCE PO Last administered on 20:15; Start 07/14/17 at 20:15; Stop 07/14/17 at 20:16; Status DC Active Scripts Active Reported Depakote Er (Divalproex Sodium) 250 Mg Tab.er.24h 1 Tab PO QHS Trazodone Hcl 100 Mg Tablet 100 Mg PO QHS May repeat one time Propranolol Hcl 20 Mg Tablet 20 Mg PO [id number] Analgesic [place] (Methyl Salicylate/Menthol) 28 Gm Oint...g. 1 Olivia TP PRN QID PRN Mag-Al Plus Xs Suspension (Mag Hydrox/Al Hydrox/Simeth) 30 Ml Oral.susp 15 Ml PO PRN AFTMEALHC PRN Cortaid (Hydrocortisone) 42 Gm Cream..g. 1 Olivia TP BID Divalproex Sodium Er (Divalproex Sodium) 500 Mg Tab.er.24h 1,000 Mg PO QHS Vitamin D3 (Cholecalciferol (Vitamin D3)) 50,000 Unit Capsule 50,000 Unit PO WEEKLY Zofran Odt (Ondansetron) 4 Mg Tab.rapdis 4 Mg PO PRN Q8HRS PRN Milk Of Magnesia (Magnesium Hydroxide) 400 Mg/5 Ml Oral.susp 2,400 Mg PO PRN QHS PRN Carbamazepine Er (Carbamazepine) 400 Mg Tab.er.12h 400 Mg PO BID Tylenol (Acetaminophen) 325 Mg Tablet 650 Mg PO PRN Q6HRS PRN Vitamin B-12 (Cyanocobalamin (Vitamin B-12)) 500 Mcg Tablet 1,000 Mcg PO DAILY Citalopram Hbr (Citalopram Hydrobromide) 10 Mg Tablet 10 Mg PO DAILY Levothyroxine Sodium 175 Mcg Tablet 175 Mcg PO DAILY06 Donepezil Hcl 10 Mg Tablet 10 Mg PO QHS Atorvastatin Calcium 20 Mg Tablet 20 Mg PO QHS Tamsulosin Hcl 0.4 Mg Cap.er.24h 0.4 Mg PO QHS Clonazepam 0.5 Mg Tablet 0.5 Mg PO PRN BID PRN Diagnosis: Problems: (1) Impulse control disorder (2) Dementia, vascular, with delusions (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
--- NOTE | 2017-07-17 09:55 | PN ---
DATE: 07/15/2017 PSYCHIATRIC PROGRESS NOTE This late entry for 07/15/2017 covers elements not covered in my initial note of 07/15/2017. SUBJECTIVE: I met with the patient evening of 07/15/2017. The patient remains confused, has not been sexually inappropriate or aggressive, which is an improvement. REVIEW OF SYSTEMS: No CV, , pulmonary, eye, ENT system symptoms on review. Reliability poor. Gait unsteady, in wheelchair. MENTAL STATUS EXAM: Oriented to himself. Insight, judgment, recent and remote memory, attention, concentration, fund of knowledge poor, consistent with his diagnosis mentioned in my initial note. PLAN: Continue current psychotropics mentioned in my initial note. Reviewed drug interactions. Risk/benefit ratio favors no further change. Continue Depakote, Tegretol, Aricept, Klonopin, Celexa, along with Inderal for impulse control problems and trazodone at night for insomnia. CHERIE LOMBARDO MD DR: OMAR/kyle JOB#: [id number] / [id number]
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
== END 2017-07-16 12:30 | disposition home or self-care (01) | DRG 884 ==
LOC: ER 17:22 → GEROPSY 22:02
PROVIDERS: ADMIT Psychiatry & Neurology Psychiatry; ATTEND Psychiatry & Neurology Psychiatry
DX: F01.51 Vascular dementia, unspecified severity, with behavioral disturbance (principal); G30.9 Alzheimer's disease, unspecified; F02.81 Dementia in other diseases classified elsewhere, unspecified severity, with behavioral disturbance; F31.64 Bipolar disorder, current episode mixed, severe, with psychotic features; E03.9 Hypothyroidism, unspecified; E55.9 Vitamin D deficiency, unspecified; R26.0 Ataxic gait; E78.5 Hyperlipidemia, unspecified; F34.1 Dysthymic disorder; F41.9 Anxiety disorder, unspecified; F63.9 Impulse disorder, unspecified; G47.00 Insomnia, unspecified; G89.29 Other chronic pain; F10.10 Alcohol abuse, uncomplicated; N40.0 Benign prostatic hyperplasia without lower urinary tract symptoms; Z66 Do not resuscitate; Z79.899 Other long term (current) drug therapy; Z87.820 Personal history of traumatic brain injury; Z87.891 Personal history of nicotine dependence; Z91.19 Patient's noncompliance with other medical treatment and regimen
CPT/HCPCS: 36415; 80053; 80061; 80156; 80164; 81001; 82306; 82607; 83036; 83540; 83550; 83735; 84436; 84443; 84480; 85025; 86592; 86593; 93005; 97110; 97116; 97530; 99285-25